=== PATIENT | female | born 1950 | race Caucasian/White ===

== ENCOUNTER 2018-03-19 14:10 | Observation (INO) | payer MEDICARE, SELFPAY ==
[2018-03-19] VITALS (10 sets, daily range): BP systolic 98–120; BP diastolic 44–69; PULSE 72–94; RESP 15–22; TEMP 36.2–36.6; O2SAT 88–96; BMI 27.8; BMI 27.7
--- NOTE | 2018-03-19 15:12 | EKG12_ITS ---
Test Reason : SOB Blood Pressure : / mmHG Vent. Rate : 077 BPM Atrial Rate : 077 BPM P-R Int : 144 ms QRS Dur : 080 ms QT Int : 420 ms P-R-T Axes : 057 -07 071 degrees QTc Int : 475 ms Normal sinus rhythm Cannot rule out Inferior infarct , age undetermined Abnormal ECG Confirmed by MELINA DEL REAL ([id number]), features editor JORDAN BRICE ([id number]) on 03/23/2018 8:30:39 AM Referred By: LAURY Confirmed By:MELINA DEL REAL
--- NOTE | 2018-03-19 15:13 | CT_ITS ---
STUDY: CTA CHEST REASON FOR EXAM: Female, 67 years old. Elevated d-dimer, mass RADIATION DOSAGE (If Supplied By Facility): CTDIvol = ( ) mGy, DLP = ( 564.24 ) mGycm TECHNIQUE: The examination was performed with the intravenous administration of 100 ml of Isovue 370 contrast material. Post-processing of the angiographic images was performed, with multiplanar reformation and 3D reconstruction. Individualized dose optimization techniques were used for this CT. COMPARISON: None. FINDINGS: Normal enhancement of the main pulmonary artery and right and left pulmonary arteries. Normal enhancement of the bilateral peripheral pulmonary arteries. There is no demonstrated pulmonary embolism. There are calcified plaques of the thoracic aorta. There is no demonstrated aortic dissection. Normal heart and pericardium. There is a subcarinal node measuring 3.2 x 1.8 cm. There is a right hilar mass/adenopathy encasing the distal right pulmonary artery , Measuring 5.0 x 2.6 x 3.5 cm. Normal visualized trachea and bronchi. The lungs are well expanded. There are mild diffuse emphysematous changes of the lungs. There are multiple right-sided pulmonary masses. There is a lobular right upper lobe mass abutting the superior major fissure measuring 2.8 x 1.6 cm. There is a right lower lobe paraspinous mass measuring 3.9 x 3.1 cm. There is a pleural-based right lower lobe mass measuring 4.1 x 2.6 cm. There is a lateral right middle lobe pleural-based nodule measuring 0.9 x 0.9 cm. There is plaque-like pleural mass of the posterolateral right hemithorax measuring 4.7 x 0.9 cm. This extends into the soft tissues of the chest wall. There is a medial right lower lobe mass measuring 1.8 x 1.6 cm. There is a lobular right lower lobe nodule measuring 1.0 x 1.0 cm. There are diffuse degenerative changes of the visualized thoracolumbar spine. No lytic or blastic osseous changes are seen. There is mild splenomegaly. There are several hepatic cysts measuring up to 1.[address]/CTA Chest W/WO Contrast IMPRESSION: Normal CTA chest examination, without a demonstrated pulmonary embolism or arterial dissection. There are numerous right lung masses/nodules as detailed above. There is a subcarinal enlarged mediastinal node and right hilar mass/adenopathy. Other findings as detailed above. Electronically Signed: Moises Jennings MD at 17:20 EDT , Service support ,
--- NOTE | 2018-03-19 15:17 | NURSING ---
NO OLD EKGS
[2018-03-19] MEDS: Ipratropium/Albuterol Sulfate 3 ML AMPUL.NEB INHALATION ×2 (15:30→22:58)
--- NOTE | 2018-03-19 15:41 | ED.DCSUM_ITS ---
- ER Visit Summary Date of Service: 03/19/18 Chief Complaint: Right chest pain History of Present Illness: The patient is a 67 F with right posterior chest pain for the past 1 month. She does report worsening shortness of breath with underlying history of COPD. She was seen by her PCPs office earlier this week. Her d-dimer was elevated. Chest x-ray revealed 2 right-sided masses. She was sent to the ER for CTA of her chest. Past history significant for coronary disease with cardiac stents, asthma, COPD, high cholesterol. She is a smoker. Physical Examination: Vital signs are unremarkable. Patient sitting upright in bed no acute distress. Head and neck examination is unremarkable. Heart is regular rate and rhythm. Lung sounds with expiratory wheezes. Abdomen is soft nontender. Peripheral pulses are noted throughout. Test Results: EKG is sinus at 77 with no sign of acute. CBC is normal. Chemistry studies significant only for a glucose of 143. Troponin is negative. CTA of the chest shows no evidence of PE or dissection. There are numerous ri ght lung masses/nodules. There is a subcarinal enlarged mediastinal node and right hilar mass/adenopathy. Emergency Department Course and Treatment: Patient was given aerosols. Her O2 sat did drop to 88% on room air and she did require nasal cannula. She has been given morphine and Zofran for pain. Test results were discussed with patient and at bedside. Patient is currently requiring oxygen supplementation and will be admitted because of this. I did advise her that she may go home this weekend with or without oxygen. She may have to return to have lung biopsy performed as an outpatient. She understands this. Treatment Plan: [] Disposition: Admit Impression: 1. COPD exacerbation with hypoxia 2. Multiple right lung masses This note was generated with [employer] dictation software. It may contain incorrect words, spelling, and punctuation that were not noted in review of the chart prior to signing ED Disposition - Plan for ED Patient: Chief Complaint: Shortness of Breath Referrals: Sher Palacio MD [Primary Care Provider] -
[2018-03-19] MEDS: 0.9% Normal Saline 1,000 ML 150 ML IV ×2 (15:44→21:03)
[2018-03-19] MEDS: Ondansetron 4 MG/2 ML Vial IV (15:44)
[2018-03-19] MEDS: Morphine 4 MG/ML Syringe IV ×2 (15:44→18:17)
[2018-03-19 15:47] LABS: Absolute Lymphocyte Count 1.08 X10^3/ul (0.83-4.51); Absolute Neutrophil Count 7.6 X10^3/uL (2.0-7.7); Basophil# 0.01 X10^3/uL; Basophil% 0.1 % (0-1); Eosinophil# 0.07 X10^3/uL; Eosinophils% 0.8 % (0-5); Hemoglobin 12.6 g/dl (12.0-15.0); Lymphocyte # 1.08 X10^3/ul (4.0); Lymphocyte % 12.1 % (19-41); Mean Corp Hgb Conc 33.2 g/gl (32-36); Mean Corpuscular Hgb 29.6 pg (27.0-32.0); Mean Corpuscular Volume 89.2 fL (81-99); Mean Platelet Vol. 9.6 fl (6.2-12.0); Monocyte# 0.11 X10^3/uL; Monocyte% 1.2 % (0-10); Neutrophil # 7.61 X10^3/uL (2.7-7.7); Neutrophil % 85.6 % (47-70); Platelet Count 181 K/mm3 (150-450); RBC Distribution Width CV 13.6 % (11.6-14.6); RBC Distribution Width SD 43.8 fl (35.1-43.9); Red Blood Count 4.26 M/mm3 (4.2-5.4); White Blood Count 8.9 K/mm3 (4.4-11.0)
[2018-03-19 16:01] LABS: Anion Gap 7 (5-15); BUN 14 mg/dL (7-18); BUN/Creat Ratio 17.1 RATIO (10-20); Calcium,Total 8.6 mg/dL (8.5-10.1); Chloride 106 mmol/L (98-107); Creatinine, Serum 0.82 mg/dL (0.55-1.02); EST Glomerular Filtration Rate 74 mL/min (>60); Est Glom Filt Rate - Afr Amer 90 mL/min (>60); Estimated Creatinine Clearance 63.18 ml/min; Glucose 143 mg/dL (74-106); Potassium 4.5 mmol/L (3.5-5.1); Sodium Level 140 mmol/L (136-145)
[2018-03-19 16:03] LABS: POSITIVE COUNT NO; POSITIVE DIFFERENTIAL NO; POSITIVE MORPHOLOGY NO
[2018-03-19] MEDS: Albuterol 2.5 MG/3 ML VIAL.NEB. INHALATION ×2 (17:35→17:36)
--- NOTE | 2018-03-19 18:16 | HP.PCM_ITS ---
Problem List (1) Upper back pain on right side Status: Acute (2) Shortness of breath Status: Acute History of Present Illness Date of Admission: 03/19/18 Chief Complaint: right upper back pain, shortness of breath The patient is a 67 year old F with past medical history of CAD status post stents, hypertension and COPD. She was admitted through the ED on 03/19/2018 with a complaint of right upper back pain for 1 month. Pain was sharp, rated 10 out of 10, progressively worsening, pleuritic in nature, aggravated by breathing in and out and relieved by lying down. She also had associated weight loss of about 17 pounds over the last 1-2 months. She also admitted to feeling lethargic and not having a good appetite but denied any fever or chills, and admitted to a cough which was occasionally productive of scanty sputum. She denied any chest pain, abdominal pain, diarrhea vomiting. She went to see PCP and a chest x-ray which was done showed 2 right lung masses and so she was referred to the ED for a CAT scan. On arrival in the ED she was found to be desaturating with saturation being ~ 86% on room air. CT of the chest done showed multiple right lung masses. She has been admitted for hypoxic re spiratory failure and right lung masses. [] Past Medical History Allergies ibuprofen Allergy (Verified 03/19/18 14:12) Hives orange Allergy (Verified 03/19/18 14:12) Hives Home Medications: Ambulatory Orders Medication Instructions Recorded Ergocalciferol [Vitamin D] 50,000 units PO FR 03/19/18 Gabapentin [Neurontin] 600 mg PO TID 03/19/18 Lisinopril [Zestril] 5 mg PO DAILY 03/19/18 Meloxicam 15 mg PO DAILY 03/19/18 Pantoprazole Sodium 40 mg PO DAILY 03/19/18 Prednisone 40 mg PO DAILY PRN PRN 03/19/18 Rosuvastatin Calcium 40 mg PO DAILY 03/19/18 Sertraline HCl [Zoloft] 150 mg PO DAILY 03/19/18 Tizanidine HCl 4 mg PO Q8H PRN PRN 03/19/18 Surgical History: - - appendectomy, cholecystectomy Psychiatric History: No pertinent psych hx 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 Denies: Chills, Fever, Night Sweats, Malaise HEENT: Denies: Head Aches, Sinus Congestion, Sinus Drainage Cardiovascular: Denies: Chest Pain, Chest Pressure, Palpitations Respiratory: Reports: Cough, Pleuritic Pain, Shortness of Breath, Shortness of breath at rest, Shortness of breath upon exertion, Sputum production. Denies: Hemoptysis Gastrointestinal: Denies: Abdominal Pain, Nausea, Vomiting Genitourinary: Denies: Dysuria Musculoskeletal: Denies: Joint Pain, Joint Tenderness Skin: Denies: Rash, Wounds Neurological: Denies: Numbness, Tingling, Focal weakness Psychiatric: Denies: Anxiety, Depression, Homicidal Ideations, Suicidal Ideations Hematologic/ Lymphatic: Denies: Easy Bruising, Easy Bleeding VTE Information - Inpt Only VTE Present on Admission: No VTE Pharm Prophylaxis ordered?: Yes Patient Problems: Active and Suspected Problems Upper back pain on right side (Acute) Shortness of breath (Acute) - Physical Exam General: Alert, Oriented x3, Cooperative, No apparent distress HEENT: Atraumatic, PERRLA, EOMI, Normocephalic Oral: Moist Mucosa Neck: Supple, No JVD, Negative Carotid Bruits Lungs: - - coarse crackles in left lower lung roche. Cardiovascular: Regular rate, Regular Rhythm, Normal S1, Normal S2, No murmurs Abdomen: Bowel Sounds Present, Soft, Non Tender, Non-Distended, No Hepato- splenomegaly Extremities: No clubbing, No cyanosis, No edema, Capillary Refill Less than 3 Seconds Skin: No rashes, No breakdown Musculoskeletal: No Tenderness to Palpation of Joints or Extremities Lymphatic: No Cervical, Supraclavicular, or Inguinal Adenopathy Neurological: Cranial nerves II-XII grossly intact, Neuro grossly intact, Motor Exam 5/5 strength throughout Psych/Mental Status: Normal Affect, Appropriate, Alert and oriented to time, place, person, mood and affect Vital Signs Temp Pulse Resp BP Pulse Ox 97.2 F L 84 15 114/61 88 03/19/18 14:12 03/19/18 17:36 03/19/18 17:36 03/19/18 17:20 03/19/18 17:20 Oxygen Flow Rate (L/min) 2 Oxygen Delivery Method Room Air Weight: 172 lb 9.951 oz Body Mass Index (BMI) 27.8 Laboratory Tests Past 24 Hrs 03/19/18 03/19/18 15:31 15:31 WBC 8.9 RBC 4.26 Hgb 12.6 Hct 38.0 MCV 89.2 MCH 29.6 MCHC 33.2 RDW 13.6 RDW Differential 43.8 Plt Count 181 MPV 9.6 Immature Gran % (Auto) 0.200 Neut % (Auto) 85.6 H Lymph % (Auto) 12.1 L [place] % (Auto) 1.2 Eos % (Auto) 0.8 Baso % (Auto) 0.1 Absolute Neuts (auto) 7.6 Absolute Lymphs (auto) 1.08 Total Counted Not Reportable Sodium 140 Potassium 4.5 Chloride 106 Carbon Dioxide 27.0 Anion Gap 7 BUN 14 Creatinine 0.82 Estim Creat Clear Calc 63.18 Est GFR (MDRD) Af Amer 90 Est GFR (MDRD) Non-Af 74 BUN/Creatinine Ratio 17.1 Glucose 143 H Calcium 8.6 Troponin I < 0.015 Diagnostic Data Chest CTA 03/19/18 15:13 IMPRESSION: Normal CTA chest examination, without a demonstrated pulmonary embolism or arterial dissection. There are numerous right lung masses/nodules as detailed above. There is a subcarinal enlarged mediastinal node and right hilar mass/adenopathy. Other findings as detailed above. Electronically Signed: Moises Jennings MD at 17:20 EDT , Service support , Assessment/Plan All Active Problems Upper back pain on right side (Acute) Shortness of breath (Acute) [age]-year-old female presenting with a one month history of right upper back pain and shortness of breath which is worsening. 1. Acute hypoxic respiratory insufficiency, likely due to COPD and newly diagnosed lung masses * Was saturating at 88% on room air and so required oxygen. * Has coarse crackles in left lower lung field. * CT chest showed multiple lung masses in the right lung with a subcarinal enlarged mediastinal node and right hilar mass adenopathy. In light of her extensive smoking history, this is lung cancer until proven otherwise * breathing treatments with duonebs * pulmonology consult * continue oxygen to maintain saturation >90% * 2. RIght lung masses, likely malignancy * as under 1. Having right upper back pain for about a month and chest x-ray done in the PCPs office showed [address] is done today as documented above. There was no PE though d-dimer was elevated. * pulmonology consult. * 3. COPD: breathing treatments with duonebs. Counselled to quit smoking 4. Hypertension: On lisinopril 5. CAD status post stents x5: Last stent was in 2003. On rosuvastatin. 6. DVT prophylaxis: Heparin CODE STATUS: Full code * Patient and partner counseled extensively about different types of CODE STATUS including differences between full code, DNR CCA DNR CCA. Patient elects to be full code for now. Her next of kin- children. * Total face to face time- 17 mins Code Visit OBSV E&M: 21655 Initial observation care L3 Procedures: 19121 Advncd Care Plan 30 Min
--- NOTE | 2018-03-19 18:17 | NURSING ---
MED SURG COPD EXAC, LUNG MASSES CECIL
[2018-03-19] MEDS: Heparin Injection (Vial) 5,000 UNIT/ML VIAL 5000 UNIT SC (21:05)
[2018-03-20] VITALS (8 sets, daily range): BP systolic 111–127; BP diastolic 47–60; PULSE 72–89; RESP 18; TEMP 36.7–36.9; O2SAT 84–98
[2018-03-20] MEDS: HYDROcodone Bitartrate/Apap 5/325 Tablet PO ×2 (01:08→09:27)
[2018-03-20] MEDS: 0.9% NaCl Peripheral Flush Adult/Peds IV (02:49)
[2018-03-20] MEDS: Morphine 2 MG/ML Syringe IV (02:50)
[2018-03-20] MEDS: 0.9% Normal Saline 1,000 ML 150 ML IV (02:58)
[2018-03-20 05:54] LABS: Absolute Lymphocyte Count 2.28 X10^3/ul (0.83-4.51); Absolute Neutrophil Count 5.6 X10^3/uL (2.0-7.7); Basophil# 0.01 X10^3/uL; Basophil% 0.1 % (0-1); Eosinophil# 0.21 X10^3/uL; Eosinophils% 2.4 % (0-5); Hematocrit 33.6 % (37-47); Hemoglobin 10.7 g/dl (12.0-15.0); Lymphocyte # 2.28 X10^3/ul (4.0); Lymphocyte % 26.5 % (19-41); Mean Corp Hgb Conc 31.8 g/gl (32-36); Mean Corpuscular Hgb 29.3 pg (27.0-32.0); Mean Corpuscular Volume 92.1 fL (81-99); Mean Platelet Vol. 9.6 fl (6.2-12.0); Monocyte# 0.54 X10^3/uL; Monocyte% 6.3 % (0-10); Neutrophil # 5.56 X10^3/uL (2.7-7.7); Neutrophil % 64.6 % (47-70); Platelet Count 140 K/mm3 (150-450); RBC Distribution Width CV 13.9 % (11.6-14.6); RBC Distribution Width SD 45.3 fl (35.1-43.9); Red Blood Count 3.65 M/mm3 (4.2-5.4); White Blood Count 8.6 K/mm3 (4.4-11.0)
[2018-03-20 06:03] LABS: Anion Gap 6 (5-15); BUN 14 mg/dL (7-18); BUN/Creat Ratio 24.1 RATIO (10-20); Calcium,Total 8.1 mg/dL (8.5-10.1); Chloride 111 mmol/L (98-107); Creatinine, Serum 0.58 mg/dL (0.55-1.02); EST Glomerular Filtration Rate 110 mL/min (>60); Est Glom Filt Rate - Afr Amer 133 mL/min (>60); Estimated Creatinine Clearance 51.81 ml/min; Glucose 78 mg/dL (74-106); Potassium 3.8 mmol/L (3.5-5.1); Sodium Level 144 mmol/L (136-145)
[2018-03-20 06:13] LABS: POSITIVE COUNT NO; POSITIVE DIFFERENTIAL NO
[2018-03-20 06:14] LABS: POSITIVE MORPHOLOGY NO
[2018-03-20] MEDS: Heparin Injection (Vial) 5,000 UNIT/ML VIAL 5000 UNIT SC (06:54)
[2018-03-20] MEDS: Ipratropium/Albuterol Sulfate 3 ML AMPUL.NEB INHALATION ×2 (06:59→12:59)
--- NOTE | 2018-03-20 07:30 | PCM.CONS.GEN ---
Reason for Consult Date of Consultation: 03/20/18 Reason for Consultation: Abnormal chest imaging History of Present Illness: The patient is a 67-year-old female, with a history as outlined below, who presented to the emergency department on March 19 with complaints of shortness of breath and right-sided chest pain. The patient had reportedly been evaluated in the office of her primary care provider. A d-dimer was obtained, which was elevated and a plain film chest x-ray revealed abnormalities. Therefore, the patient was referred to the emergency department for further evaluation. The patient claims to be followed by Dr. Willis, pulmonary medicine, through the [facility] as an outpatient basis. She also claims to have had pulmonary function testing completed and states that she utilizes 3 separate inhalers on an outpatient basis, but cannot recall their names. She did inform me that it was her intention to continue to follow-up with her current pulmonary provider. She does report that her weight has been stable, but does admit to poor appetite. Prior to her hospitalization, she was not utilizing supplemental oxygen at her baseline. She is currently smoking 0.5 packs/day, but did admit to being a heavier smoker previously. She states that she has been smoking since age of 15. On presentation to the emergency department, the patient was noted to be afebrile, hemodynamically stable and maintaining appropriate oxygen saturations on room air. Laboratory evaluation revealed no evidence of a leukocytosis. Chemistry profile was unremarkable. Troponin was negative. A CTA chest was obtained which revealed no evidence for pulmonary embolism. There was, however, evidence of mediastinal and hilar lymphadenopathy. There did appear to be a dominant right hilar mass/adenopathy. Multiple other focal masses were identified bilaterally. Emphysematous changes were noted as well. Past Medical History Allergies ibuprofen Allergy (Verified 03/19/18 14:12) Hives orange Allergy (Verified 03/19/18 14:12) Hives Home Medications: Ambulatory Orders Medication Instructions Recorded Aspirin [Aspirin, Baby] 81 mg PO DAILY@0800 03/19/18 Ergocalciferol [Vitamin D] 50,000 units PO FR 03/19/18 Gabapentin [Neurontin] 600 mg PO TID 03/19/18 Lisinopril [Zestril] 5 mg PO DAILY 03/19/18 Meloxicam 15 mg PO DAILY 03/19/18 Pantoprazole Sodium 40 mg PO DAILY 03/19/18 Prednisone 40 mg PO DAILY PRN PRN 03/19/18 Rosuvastatin Calcium 40 mg PO DAILY 03/19/18 Sertraline HCl [Zoloft] 150 mg PO DAILY 03/19/18 Tizanidine HCl 4 mg PO Q8H PRN PRN 03/19/18 Albuterol Inhaler [Ventolin Hfa] 1 - 2 puff INHALATION Q4H PRN PRN 03/20/18 #1 inhaler Prednisone 40 mg PO DAILY #10 tablet 03/20/18 Surgical History: - - appendectomy, cholecystectomy Psychiatric History: No 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 Denies: Head Aches, Sinus Congestion, Sinus Drainage Cardiovascular: Denies: Chest Pain, Palpitations Respiratory: Reports: Shortness of Breath Gastrointestinal: Denies: Abdominal Pain, Nausea, Vomiting Genitourinary: Denies: Dysuria Musculoskeletal: Denies: Joint Pain, Joint Tenderness Skin: Denies: Rash, Wounds Neurological: Denies: Numbness, Tingling, Focal weakness Psychiatric: Denies: Anxiety, Depression, Homicidal Ideations, Suicidal Ideations Hematologic/ Lymphatic: Denies: Easy Bruising, Easy Bleeding Objective: The patient's most recent lab work, culture data and imaging studies have all been personally reviewed. - Physical Exam General: Alert, Cooperative, No apparent distress HEENT: Atraumatic, PERRLA, Normocephalic Oral: No Gingival or Mucosal Lesions/ Ulcerations Neck: Supple, No Nodes, Trachea Midline Lungs: No rhonchi, No wheeze, Diminished, Rales Cardiovascular: Regular rate, Regular Rhythm, Normal S1, Normal S2, No murmurs Abdomen: Bowel Sounds Present, Soft, Non Tender, Obese Extremities: No clubbing, No cyanosis, No edema Skin: No breakdown Musculoskeletal: No Tenderness to Palpation of Joints or Extremities, No Muscle Wasting Lymphatic: No Cervical, Supraclavicular, or Inguinal Adenopathy Neurological: Cranial nerves II-XII grossly intact, Neuro grossly intact Psych/Mental Status: Normal Affect, Appropriate Vital Signs Temp Pulse Resp BP Pulse Ox 98.3 F 72 18 111/47 L 96 03/20/18 02:45 03/20/18 06:59 03/20/18 02:45 03/20/18 02:45 03/20/18 02:45 Oxygen Flow Rate (L/min) 2 Oxygen Delivery Method Nasal Cannula Weight: 171 lb 15.369 oz Body Mass Index (BMI) 27.7 Intake and Output for Last 24 Hours 03/18/18 03/19/18 03/20/18 23:59 23:59 23:59 Intake Total 442 / 442 1306 / 1306 Balance 442 / 442 1306 / 1306 Laboratory Tests Past 24 Hrs 03/19/18 03/19/18 03/20/18 15:31 15:31 05:39 WBC 8.9 RBC 4.26 Hgb 12.6 Hct 38.0 MCV 89.2 MCH 29.6 MCHC 33.2 RDW 13.6 RDW Differential 43.8 Plt Count 181 MPV 9.6 Immature Gran % (Auto) 0.200 Neut % (Auto) 85.6 H Lymph % (Auto) 12.1 L [place] % (Auto) 1.2 Eos % (Auto) 0.8 Baso % (Auto) 0.1 Absolute Neuts (auto) 7.6 Absolute Lymphs (auto) 1.08 Total Counted Not Reportable Sodium 140 144 Potassium 4.5 3.8 Chloride 106 111 H Carbon Dioxide 27.0 27.0 Anion Gap 7 6 BUN 14 14 Creatinine 0.82 0.58 Estim Creat Clear Calc 63.18 51.81 Est GFR (MDRD) Af Amer 90 133 Est GFR (MDRD) Non-Af 74 110 BUN/Creatinine Ratio 17.1 24.1 H Glucose 143 H 78 Calcium 8.6 8.1 L Troponin I < 0.015 03/20/18 05:39 WBC 8.6 RBC 3.65 L Hgb 10.7 L Hct 33.6 L MCV 92.1 MCH 29.3 MCHC 31.8 L RDW 13.9 RDW Differential 45.3 H Plt Count 140 L MPV 9.6 Immature Gran % (Auto) 0.100 Neut % (Auto) 64.6 Lymph % (Auto) 26.5 [place] % (Auto) 6.3 Eos % (Auto) 2.4 Baso % (Auto) 0.1 Absolute Neuts (auto) 5.6 Absolute Lymphs (auto) 2.28 Total Counted Not Reportable Sodium Potassium Chloride Carbon Dioxide Anion Gap BUN Creatinine Estim Creat Clear Calc Est GFR (MDRD) Af Amer Est GFR (MDRD) Non-Af BUN/Creatinine Ratio Glucose Calcium Troponin I Clinical Impression(s) from Imaging Studies Chest CTA 03/19/18 15:13 IMPRESSION: Normal CTA chest examination, without a demonstrated pulmonary embolism or arterial dissection. There are numerous right lung masses/nodules as detailed above. There is a subcarinal enlarged mediastinal node and right hilar mass/adenopathy. Other findings as detailed above. Electronically Signed: Moises Jennings MD at 17:20 EDT , Service support , Assessment/Plan All Active Problems Upper back pain on right side (Acute) Shortness of breath (Acute) RECOMMENDATIONS: 1. Ideally, the patient needs further workup of her underlying abnormal chest imaging. However, she does report that she has an outpatient supervisor cold rolling whom she plans to follow-up with. 2. Would plan to obtain a walking oximetry study prior to consideration for discharge from the hospital. 3. Recommend that she be seen by her outpatient supervisor cold rolling within 2 weeks of her discharge for further workup. 4. If the patient wishes, we would be more than happy to see her as an outpatient. IMPRESSIONS: 1. Abnormal chest imaging Given the patient's chest imaging findings in conjunction with her extended smoking history, the radiographic findings are certainly concerning for underlying malignancy. This, of course, would require additional workup including potential bronchoscopy and/or percutaneous lung biopsy. This can all be accomplished on an outpatient basis. The patient indicated to me that she wished to follow-up with her outpatient supervisor cold rolling. I would recommend that a follow-up appointment be scheduled within 2 weeks of her discharge from the hospital. If they are unable to facilitate a follow-up office visit, the patient will be referred to our pulmonary practice here for further workup. 2. Self-reported COPD of unknown severity/respiratory insufficiency The patient appears to have a new supplemental oxygen requirement. The chronicity and severity of her COPD is unknown to me. However, we will plan to perform a walking oximetry study and qualify the patient for home supplemental O2. Depending on her wishes, she can either follow-up with her outpatient supervisor cold rolling or come see us. 3. Tobacco dependency Smoking cessation is strongly advised. 4. Obesity/neuropathy/hypertension/GERD/hyperlipidemia Complicates care, management, recovery and prognosis. Likely okay to continue home medications. This note was generated with [employer] dictation software. It may contain incorrect words, spelling, and punctuation that were not noted in checking the note before signing. Code Visit Inpatient E&M: 70079 Init Hosp L3
--- NOTE | 2018-03-20 07:35 | CON.PCM_ITS ---
Reason for Consult Date of Consultation: 03/20/18 Reason for Consultation: Abnormal chest imaging History of Present Illness: The patient is a 67-year-old female, with a history as outlined below, who presented to the emergency department on March 19 with complaints of shortness of breath and right-sided chest pain. The patient had reportedly been evaluated in the office of her primary care provider. A d-dimer was obtained, which was elevated and a plain film chest x-ray revealed abnormalities. Therefore, the patient was referred to the emergency department for further evaluation. The patient claims to be followed by Dr. Willis, pulmonary medicine, through the [facility] as an outpatient basis. She also claims to have had pulmonary function testing completed and states that she utilizes 3 separate inhalers on an outpatient basis, but cannot recall their names. She did inform me that it was her intention to continue to follow-up with her current pulmonary provider. She does report that her weight has been stable, but does admit to poor appetite. Prior to her hospitalization, she was not utilizing supplemental oxygen at her baseline. She is currently smoking 0.5 packs/day, but did admit to being a heavier smoker previously. She states that she has been smoking since age of 15. On presentation to the emergency department, the patient was noted to be afebrile, hemodynamically stable and maintaining appropriate oxygen saturations on room air. Laboratory evaluation revealed no evidence of a leukocytosis. Chemistry profile was unremarkable. Troponin was negative. A CTA chest was obtained which revealed no evidence for pulmonary embolism. There was, however, evidence of mediastinal and hilar lymphadenopathy. There did appear to be a dominant right hilar mass/adenopathy. Multiple other focal masses were identified bilaterally. Emphysematous changes were noted as well. Past Medical History Allergies ibuprofen Allergy (Verified 03/19/18 14:12) Hives orange Allergy (Verified 03/19/18 14:12) Hives Home Medications: Ambulatory Orders Medication Instructions Recorded Aspirin [Aspirin, Baby] 81 mg PO DAILY@0800 03/19/18 Ergocalciferol [Vitamin D] 50,000 units PO FR 03/19/18 Gabapentin [Neurontin] 600 mg PO TID 03/19/18 Lisinopril [Zestril] 5 mg PO DAILY 03/19/18 Meloxicam 15 mg PO DAILY 03/19/18 Pantoprazole Sodium 40 mg PO DAILY 03/19/18 Prednisone 40 mg PO DAILY PRN PRN 03/19/18 Rosuvastatin Calcium 40 mg PO DAILY 03/19/18 Sertraline HCl [Zoloft] 150 mg PO DAILY 03/19/18 Tizanidine HCl 4 mg PO Q8H PRN PRN 03/19/18 Albuterol Inhaler [Ventolin Hfa] 1 - 2 puff INHALATION Q4H PRN PRN 03/20/18 #1 inhaler Prednisone 40 mg PO DAILY #10 tablet 03/20/18 Surgical History: - - appendectomy, cholecystectomy Psychiatric History: No pertinent psych hx ACCOUNTS OFFICER History: No pertinent ACCOUNTS OFFICER history Lives: Spouse/ Significant Other Smoking Status: Current every day smoker Tobacco Use: Cigarettes Alcohol: None Drugs: None - *Family History Sibling History Items: Cancer - lung cancer in 2 of her sisters from smoking; brain cancer in brother, COPD Review of Systems Constitutional: Denies: Chills, Fever Eyes: Denies: Blurred vision, Double vision HEENT: Reports: Difficulty Hearing. Denies: Head Aches, Sinus Congestion, Sinus Drainage Cardiovascular: Denies: Chest Pain, Palpitations Respiratory: Reports: Shortness of Breath Gastrointestinal: Denies: Abdominal Pain, Nausea, Vomiting Genitourinary: Denies: Dysuria Musculoskeletal: Denies: Joint Pain, Joint Tenderness Skin: Denies: Rash, Wounds Neurological: Denies: Numbness, Tingling, Focal weakness Psychiatric: Denies: Anxiety, Depression, Homicidal Ideations, Suicidal Ideations Hematologic/ Lymphatic: Denies: Easy Bruising, Easy Bleeding Objective: The patient's most recent lab work, culture data and imaging studies have all been personally reviewed. - Physical Exam General: Alert, Cooperative, No apparent distress HEENT: Atraumatic, PERRLA, Normocephalic Oral: No Gingival or Mucosal Lesions/ Ulcerations Neck: Supple, No Nodes, Trachea Midline Lungs: No rhonchi, No wheeze, Diminished, Rales Cardiovascular: Regular rate, Regular Rhythm, Normal S1, Normal S2, No murmurs Abdomen: Bowel Sounds Present, Soft, Non Tender, Obese Extremities: No clubbing, No cyanosis, No edema Skin: No breakdown Musculoskeletal: No Tenderness to Palpation of Joints or Extremities, No Muscle Wasting Lymphatic: No Cervical, Supraclavicular, or Inguinal Adenopathy Neurological: Cranial nerves II-XII grossly intact, Neuro grossly intact Psych/Mental Status: Normal Affect, Appropriate Vital Signs Temp Pulse Resp BP Pulse Ox 98.3 F 72 18 111/47 L 96 03/20/18 02:45 03/20/18 06:59 03/20/18 02:45 03/20/18 02:45 03/20/18 02:45 Oxygen Flow Rate (L/min) 2 Oxygen Delivery Method Nasal Cannula Weight: 171 lb 15.369 oz Body Mass Index (BMI) 27.7 Intake and Output for Last 24 Hours 03/18/18 03/19/18 03/20/18 23:59 23:59 23:59 Intake Total 442 / 442 1306 / 1306 Balance 442 / 442 1306 / 1306 Laboratory Tests Past 24 Hrs 03/19/18 03/19/18 03/20/18 15:31 15:31 05:39 WBC 8.9 RBC 4.26 Hgb 12.6 Hct 38.0 MCV 89.2 MCH 29.6 MCHC 33.2 RDW 13.6 RDW Differential 43.8 Plt Count 181 MPV 9.6 Immature Gran % (Auto) 0.200 Neut % (Auto) 85.6 H Lymph % (Auto) 12.1 L [place] % (Auto) 1.2 Eos % (Auto) 0.8 Baso % (Auto) 0.1 Absolute Neuts (auto) 7.6 Absolute Lymphs (auto) 1.08 Total Counted Not Reportable Sodium 140 144 Potassium 4.5 3.8 Chloride 106 111 H Carbon Dioxide 27.0 27.0 Anion Gap 7 6 BUN 14 14 Creatinine 0.82 0.58 Estim Creat Clear Calc 63.18 51.81 Est GFR (MDRD) Af Amer 90 133 Est GFR (MDRD) Non-Af 74 110 BUN/Creatinine Ratio 17.1 24.1 H Glucose 143 H 78 Calcium 8.6 8.1 L Troponin I < 0.015 03/20/18 05:39 WBC 8.6 RBC 3.65 L Hgb 10.7 L Hct 33.6 L MCV 92.1 MCH 29.3 MCHC 31.8 L RDW 13.9 RDW Differential 45.3 H Plt Count 140 L MPV 9.6 Immature Gran % (Auto) 0.100 Neut % (Auto) 64.6 Lymph % (Auto) 26.5 [place] % (Auto) 6.3 Eos % (Auto) 2.4 Baso % (Auto) 0.1 Absolute Neuts (auto) 5.6 Absolute Lymphs (auto) 2.28 Total Counted Not Reportable Sodium Potassium Chloride Carbon Dioxide Anion Gap BUN Creatinine Estim Creat Clear Calc Est GFR (MDRD) Af Amer Est GFR (MDRD) Non-Af BUN/Creatinine Ratio Glucose Calcium Troponin I Clinical Impression(s) from Imaging Studies Chest CTA 03/19/18 15:13 IMPRESSION: Normal CTA chest examination, without a demonstrated pulmonary embolism or arterial dissection. There are numerous right lung masses/nodules as detailed above. There is a subcarinal enlarged mediastinal node and right hilar mass/adenopathy. Other findings as detailed above. Electronically Signed: Moises Jennings MD at 17:20 EDT , Service support , Assessment/Plan All Active Problems Upper back pain on right side (Acute) Shortness of breath (Acute) RECOMMENDATIONS: 1. Ideally, the patient needs further workup of her underlying abnormal chest imaging. However, she does report that she has an outpatient sheet cutting operator whom she plans to follow-up with. 2. Would plan to obtain a walking oximetry study prior to consideration for discharge from the hospital. 3. Recommend that she be seen by her outpatient sheet cutting operator within 2 weeks of her discharge for further workup. 4. If the patient wishes, we would be more than happy to see her as an outpatient. IMPRESSIONS: 1. Abnormal chest imaging Given the patient's chest imaging findings in conjunction with her extended smoking history, the radiographic findings are certainly concerning for underlying malignancy. This, of course, would require additional workup including potential bronchoscopy and/or percutaneous lung biopsy. This can all be accomplished on an outpatient basis. The patient indicated to me that she wished to follow-up with her outpatient sheet cutting operator. I would recommend that a follow-up appointment be scheduled within 2 weeks of her discharge from the hospital. If they are unable to facilitate a follow-up office visit, the patient will be referred to our pulmonary practice here for further workup. 2. Self-reported COPD of unknown severity/respiratory insufficiency The patient appears to have a new supplemental oxygen requirement. The chronicity and severity of her COPD is unknown to me. However, we will plan to perform a walking oximetry study and qualify the patient for home supplemental O2. Depending on her wishes, she can either follow-up with her outpatient sheet cutting operator or come see us. 3. Tobacco dependency Smoking cessation is strongly advised. 4. Obesity/neuropathy/hypertension/GERD/hyperlipidemia Complicates care, management, recovery and prognosis. Likely okay to continue home medications. This note was generated with [employer] dictation software. It may contain incorrect words, spelling, and punctuation that were not noted in checking the note before signing. Code Visit Inpatient E&M: 80304 Init Hosp L3
--- NOTE | 2018-03-20 09:45 | CASEMGMT ---
Addendum entered by Nura Tran 03/20/18 10:33: Intro role of CM to patient in room. Pt states she is agreeable to Home oxygen through [facility], has no concerns re: dc. Family will provide transporation to physicians if needed. Pt has walker, cane, does not use @ this time. Liberty WOODARD Original Note: RN CM Note: Referral received for Home Oxygen on dc. Per insurance review on [facility] website, [facility] is [facility]. Clinical information packet made, awaiting script to be completed by physician and Oxygen documentation including Liter flow needed on ambulation to keep Sat>90%. [facility] nurse updated. Liberty GRACIAM
--- NOTE | 2018-03-20 10:46 | DCINST_ITS ---
- Discharge Diagnoses Current Active Problems: Current Active and Chronic Problems Upper back pain on right side (Acute) Shortness of breath (Acute) You will use the following diet at home:: Cardiac Discharge Activity: Return to Normal Activity Call your doctor if you observe: Shortness of breath, Dizziness, Fainting spells, Chest pain Allergies/Adverse Reactions: Allergies ibuprofen Allergy (Verified 03/19/18 14:12) Hives orange Allergy (Verified 03/19/18 14:12) Hives Medications to take at Discharge Aspirin [Aspirin, Baby] 81 mg PO DAILY@0800 03/19/18 Ergocalciferol [Vitamin D] 50,000 units PO FR 03/19/18 Gabapentin [Neurontin] 600 mg PO TID 03/19/18 Lisinopril [Zestril] 5 mg PO DAILY 03/19/18 Meloxicam 15 mg PO DAILY 03/19/18 Pantoprazole Sodium 40 mg PO DAILY 03/19/18 Prednisone 40 mg PO DAILY PRN PRN 03/19/18 Rosuvastatin Calcium 40 mg PO DAILY 03/19/18 Sertraline HCl [Zoloft] 150 mg PO DAILY 03/19/18 Tizanidine HCl 4 mg PO Q8H PRN PRN 03/19/18 Albuterol Inhaler [Ventolin Hfa] 1 - 2 puff INHALATION Q4H PRN PRN #1 inhaler 03/20/18 Prednisone 40 mg PO DAILY #10 tablet 03/20/18 The following prescriptions were given: Albuterol Inhaler [Ventolin Hfa] 1 - 2 puff INHALATION Q4H PRN PRN #1 inhaler PRN Reason: Shortness Of Breath Prednisone 40 mg PO DAILY #10 tablet Primary Care Physician: Sher Palacio MD [Primary Care Provider] - Please follow up with your Primary Care Physician in: 1 Week Test Results: Test results from this visit will be discussed in further detail at your follow- up appointment, if applicable. Please Follow Up With: Jose Willis MD When: Within 1 Week Proposed Discharge Date: 03/20/18
--- NOTE | 2018-03-20 10:51 | PCM.DC.SUM ---
<Elvira Rogers - Last Filed: 03/20/18 11:03> Discharge Date and Diagnosis Date of Admission: 03/19/18 Date of Discharge: 03/20/18 - Primary Discharge Diagnosis Active and Suspected Problems 1. Acute hypoxic respiratory insufficiency secondary to Chronic COPD with concern for new diagnosis of lung masses 2. Right lung masses, suspicious for malignancy 3. Chronic COPD 4. Hypertension 5. CAD status post stents x5 6. Depression 7. Tobacco dependence Hospital Course and Treatment Imaging Results: Diagnostic Data Chest CTA 03/19/18 15:13 IMPRESSION: Normal CTA chest examination, without a demonstrated pulmonary embolism or arterial dissection. There are numerous right lung masses/nodules as detailed above. There is a subcarinal enlarged mediastinal node and right hilar mass/adenopathy. Other findings as detailed above. Electronically Signed: Moises Jennings MD at 17:20 EDT , Service support , - Pulmonary Medicine Operations: None Procedures: None Summary of Care Provided: The patient is a 67 year old F admitted 03/19/2018 due to right upper back pain and shortness of breath. She has a past medical history of CAD status post stents, hypertension, COPD, depression, tobacco dependence. Patient reports a 17 pound weight loss over the past 1-2 months. Patient was referred by primary care physician for chest x-ray which was abnormal and reported to show [address] of the chest shows multiple right lung masses. Patient reports she has been short of breath for months. Noted to have acute hypoxic respiratory insufficiency. Patient will require supplemental oxygen at discharge. She is ambulatory in the home. Continue supplement oxygen to maintain O2 at or above 90%. Patient's oxygen 84% on room air with ambulation. Pulmonary consulted. Patient currently follows with Dr. Willis, [facility] pulmonary medicine for COPD. Patient will follow-up with primary snipper within 2 weeks of discharge for further evaluation regarding lung masses including potential bronchoscopy/lung biopsy. Strongly recommended patient quit smoking. Patient complains of chronic back pain and requesting narcotic medication at discharge. She is on muscle relaxer, meloxicam, as needed prednisone, gabapentin at home for chronic back pain. Encourage patient to discuss this further with primary care physician. Recommend follow-up with primary care physician in 1 week. General: Alert, Cooperative, No apparent distress HEENT: Atraumatic, PERRLA, Normocephalic Oral: No Gingival or Mucosal Lesions/ Ulcerations Neck: Supple, No Nodes, Trachea Midline Lungs: No rhonchi, No wheeze, Diminished, Rales Cardiovascular: Regular rate, Regular Rhythm, Normal S1, Normal S2, No murmurs Abdomen: Bowel Sounds Present, Soft, Non Tender, Obese Extremities: No clubbing, No cyanosis, No edema Skin: No breakdown Musculoskeletal: No Tenderness to Palpation of Joints or Extremities, No Muscle Wasting Lymphatic: No Cervical, Supraclavicular, or Inguinal Adenopathy Neurological: Cranial nerves II-XII grossly intact, Neuro grossly intact Psych/Mental Status: Normal Affect, Appropriate Patient seen exam prior to discharge. Physical assessment as noted above. Patient stable for discharge home with the follow-up her conditions as noted above. This patient was seen by EL Lunsford under the supervision of Dr. Matamoros. - Physical Exam Vital Signs Temp Pulse Resp BP Pulse Ox 98.4 F 89 18 121/60 H 93 03/20/18 09:10 03/20/18 09:10 03/20/18 09:10 03/20/18 09:10 03/20/18 09:30 Oxygen Flow Rate (L/min) [ 0 AMBULATING on Room Air] Oxygen Flow Rate (L/min) [At 0 REST on Room Air] Oxygen Flow Rate (L/min) 2 Oxygen Delivery Method Nasal Cannula Weight: 171 lb 15.369 oz Body Mass Index (BMI) 27.7 Intake and Output for Last 24 Hours 03/18/18 03/19/18 03/20/18 23:59 23:59 23:59 Intake Total 442 / 442 1306 / 1306 Balance 442 / 442 1306 / 1306 Laboratory Tests Past 24 Hrs 03/19/18 03/19/18 03/20/18 15:31 15:31 05:39 WBC 8.9 RBC 4.26 Hgb 12.6 Hct 38.0 MCV 89.2 MCH 29.6 MCHC 33.2 RDW 13.6 RDW Differential 43.8 Plt Count 181 MPV 9.6 Immature Gran % (Auto) 0.200 Neut % (Auto) 85.6 H Lymph % (Auto) 12.1 L [place] % (Auto) 1.2 Eos % (Auto) 0.8 Baso % (Auto) 0.1 Absolute Neuts (auto) 7.6 Absolute Lymphs (auto) 1.08 Total Counted Not Reportable Sodium 140 144 Potassium 4.5 3.8 Chloride 106 111 H Carbon Dioxide 27.0 27.0 Anion Gap 7 6 BUN 14 14 Creatinine 0.82 0.58 Estim Creat Clear Calc 63.18 51.81 Est GFR (MDRD) Af Amer 90 133 Est GFR (MDRD) Non-Af 74 110 BUN/Creatinine Ratio 17.1 24.1 H Glucose 143 H 78 Calcium 8.6 8.1 L Troponin I < 0.015 03/20/18 05:39 WBC 8.6 RBC 3.65 L Hgb 10.7 L Hct 33.6 L MCV 92.1 MCH 29.3 MCHC 31.8 L RDW 13.9 RDW Differential 45.3 H Plt Count 140 L MPV 9.6 Immature Gran % (Auto) 0.100 Neut % (Auto) 64.6 Lymph % (Auto) 26.5 [place] % (Auto) 6.3 Eos % (Auto) 2.4 Baso % (Auto) 0.1 Absolute Neuts (auto) 5.6 Absolute Lymphs (auto) 2.28 Total Counted Not Reportable Sodium Potassium Chloride Carbon Dioxide Anion Gap BUN Creatinine Estim Creat Clear Calc Est GFR (MDRD) Af Amer Est GFR (MDRD) Non-Af BUN/Creatinine Ratio Glucose Calcium Troponin I Discharge Diet: Low fat/ Low Cholesterol Discharge Activity: Return to Normal Activity Call your doctor if you observe: Shortness of breath, Dizziness, Fainting spells, Chest pain Home Medications: Medications to take at Discharge Aspirin [Aspirin, Baby] 81 mg PO DAILY@0800 03/19/18 Ergocalciferol [Vitamin D] 50,000 units PO FR 03/19/18 Gabapentin [Neurontin] 600 mg PO TID 03/19/18 Lisinopril [Zestril] 5 mg PO DAILY 03/19/18 Meloxicam 15 mg PO DAILY 03/19/18 Pantoprazole Sodium 40 mg PO DAILY 03/19/18 Prednisone 40 mg PO DAILY PRN PRN 03/19/18 Rosuvastatin Calcium 40 mg PO DAILY 03/19/18 Sertraline HCl [Zoloft] 150 mg PO DAILY 03/19/18 Tizanidine HCl 4 mg PO Q8H PRN PRN 03/19/18 Albuterol Inhaler [Ventolin Hfa] 1 - 2 puff INHALATION Q4H PRN PRN #1 inhaler 03/20/18 Prednisone 40 mg PO DAILY #10 tablet 03/20/18 Following Prescrptions Were Given to Patient: Albuterol Inhaler [Ventolin Hfa] 1 - 2 puff INHALATION Q4H PRN PRN #1 inhaler PRN Reason: Shortness Of Breath Prednisone 40 mg PO DAILY #10 tablet Primary Care Physician: Sher Palacio MD [Primary Care Provider] - Please follow up with your Primary Care Physician in: 1 Week Please Follow Up With: Jose Willis MD When: Within 1 Week Disposition: Home Minutes spent on discharge:: 35 Patient Condition:: Stable Medical Necessity - Tobacco Use Smoking Status: Current every day smoker Tobacco Use: Cigarettes Meaningful Use Info Meaningful Use Diagnoses (Choose all that apply): None applicable <Miky Matamoros F - Last Filed: 03/20/18 11:08> Hospital Course and Treatment Summary of Care Provided: The patient is a 67 year old F [] - Physical Exam Vital Signs Temp Pulse Resp BP Pulse Ox 98.4 F 89 18 121/60 H 93 03/20/18 09:10 03/20/18 09:10 03/20/18 09:10 03/20/18 09:10 03/20/18 09:30 Oxygen Flow Rate (L/min) [ 0 AMBULATING on Room Air] Oxygen Flow Rate (L/min) [At 0 REST on Room Air] Oxygen Flow Rate (L/min) 2 Oxygen Delivery Method Nasal Cannula Weight: 171 lb 15.369 oz Body Mass Index (BMI) 27.7 Intake and Output for Last 24 Hours 03/18/18 03/19/18 03/20/18 23:59 23:59 23:59 Intake Total 442 / 442 1306 / 1306 Balance 442 / 442 1306 / 1306 Laboratory Tests Past 24 Hrs 03/19/18 03/19/18 03/20/18 15:31 15:31 05:39 WBC 8.9 RBC 4.26 Hgb 12.6 Hct 38.0 MCV 89.2 MCH 29.6 MCHC 33.2 RDW 13.6 RDW Differential 43.8 Plt Count 181 MPV 9.6 Immature Gran % (Auto) 0.200 Neut % (Auto) 85.6 H Lymph % (Auto) 12.1 L [place] % (Auto) 1.2 Eos % (Auto) 0.8 Baso % (Auto) 0.1 Absolute Neuts (auto) 7.6 Absolute Lymphs (auto) 1.08 Total Counted Not Reportable Sodium 140 144 Potassium 4.5 3.8 Chloride 106 111 H Carbon Dioxide 27.0 27.0 Anion Gap 7 6 BUN 14 14 Creatinine 0.82 0.58 Estim Creat Clear Calc 63.18 51.81 Est GFR (MDRD) Af Amer 90 133 Est GFR (MDRD) Non-Af 74 110 BUN/Creatinine Ratio 17.1 24.1 H Glucose 143 H 78 Calcium 8.6 8.1 L Troponin I < 0.015 03/20/18 05:39 WBC 8.6 RBC 3.65 L Hgb 10.7 L Hct 33.6 L MCV 92.1 MCH 29.3 MCHC 31.8 L RDW 13.9 RDW Differential 45.3 H Plt Count 140 L MPV 9.6 Immature Gran % (Auto) 0.100 Neut % (Auto) 64.6 Lymph % (Auto) 26.5 [place] % (Auto) 6.3 Eos % (Auto) 2.4 Baso % (Auto) 0.1 Absolute Neuts (auto) 5.6 Absolute Lymphs (auto) 2.28 Total Counted Not Reportable Sodium Potassium Chloride Carbon Dioxide Anion Gap BUN Creatinine Estim Creat Clear Calc Est GFR (MDRD) Af Amer Est GFR (MDRD) Non-Af BUN/Creatinine Ratio Glucose Calcium Troponin I Code Visit Addendum: Dr. Matamoros I personally examined the patient and reviewed the chart. I agree with the above. 67-year-old female with past medical history of CAD status post stents, hypertension, and COPD presented to her PCP with back pain where a d-dimer was performed and was elevated and the next chest x-ray was obtained which showed nodules in her right lung. Her PCP sent her to the ER for further evaluation and she was found to be hypoxic on room air to 86%. She had a CT scan of her chest in the ER which demonstrated multiple right pulmonary lesions. She had an ambulatory pulse ox on the day of discharge demonstrating her necessity for home O2. She was seen by our in-house snipper who is more than happy to see her as an outpatient however he recommended that since she has a [facility] snipper that she follow-up with him if possible otherwise he can see her as an outpatient and perform the JULISA and lung biopsy she would need to determine what the diagnosis is. She is not currently on anything for her COPD, and she was heard to have some wheezing today so she was discharged on steroids to help both with her respiratory status as well as her back pain and she was provided with an albuterol inhaler to use as needed. OBSV E&M: 19463 Observation care discharge
--- NOTE | 2018-03-20 10:56 | DS.PCM_ITS ---
<Elvira Rogers - Last Filed: 03/20/18 11:03> Discharge Date and Diagnosis Date of Admission: 03/19/18 Date of Discharge: 03/20/18 - Primary Discharge Diagnosis Active and Suspected Problems 1. Acute hypoxic respiratory insufficiency secondary to Chronic COPD with concern for new diagnosis of lung masses 2. Right lung masses, suspicious for malignancy 3. Chronic COPD 4. Hypertension 5. CAD status post stents x5 6. Depression 7. Tobacco dependence Hospital Course and Treatment Imaging Results: Diagnostic Data Chest CTA 03/19/18 15:13 IMPRESSION: Normal CTA chest examination, without a demonstrated pulmonary embolism or arterial dissection. There are numerous right lung masses/nodules as detailed above. There is a subcarinal enlarged mediastinal node and right hilar mass/adenopathy. Other findings as detailed above. Electronically Signed: Moises Jennings MD at 17:20 EDT , Service support , - Pulmonary Medicine Operations: None Procedures: None Summary of Care Provided: The patient is a 67 year old F admitted 03/19/2018 due to right upper back pain and shortness of breath. She has a past medical history of CAD status post stents, hypertension, COPD, depression, tobacco dependence. Patient reports a 17 pound weight loss over the past 1-2 months. Patient was referred by primary care physician for chest x-ray which was abnormal and reported to show [address] of the chest shows multiple right lung masses. Patient reports she has been short of breath for months. Noted to have acute hypoxic respiratory insufficiency. Patient will require supplemental oxygen at discharge. She is ambulatory in the home. Continue supplement oxygen to maintain O2 at or above 90%. Patient's oxygen 84% on room air with ambulation. Pulmonary consulted. Patient currently follows with Dr. Willis, [facility] pulmonary medicine for COPD. Patient will follow-up with primary high school combination teacher within 2 weeks of discharge for further evaluation regarding lung masses including potential bronchoscopy/lung biopsy. Strongly recommended patient quit smoking. Patient complains of chronic back pain and requesting narcotic medication at discharge. She is on muscle relaxer, meloxicam, as needed prednisone, gabapentin at home for chronic back pain. Encourage patient to discuss this further with primary care physician. Recommend follow-up with primary care physician in 1 week. General: Alert, Cooperative, No apparent distress HEENT: Atraumatic, PERRLA, Normocephalic Oral: No Gingival or Mucosal Lesions/ Ulcerations Neck: Supple, No Nodes, Trachea Midline Lungs: No rhonchi, No wheeze, Diminished, Rales Cardiovascular: Regular rate, Regular Rhythm, Normal S1, Normal S2, No murmurs Abdomen: Bowel Sounds Present, Soft, Non Tender, Obese Extremities: No clubbing, No cyanosis, No edema Skin: No breakdown Musculoskeletal: No Tenderness to Palpation of Joints or Extremities, No Muscle Wasting Lymphatic: No Cervical, Supraclavicular, or Inguinal Adenopathy Neurological: Cranial nerves II-XII grossly intact, Neuro grossly intact Psych/Mental Status: Normal Affect, Appropriate Patient seen exam prior to discharge. Physical assessment as noted above. Patient stable for discharge home with the follow-up her conditions as noted above. This patient was seen by EL Lunsford under the supervision of Dr. Matamoros. - Physical Exam Vital Signs Temp Pulse Resp BP Pulse Ox 98.4 F 89 18 121/60 H 93 03/20/18 09:10 03/20/18 09:10 03/20/18 09:10 03/20/18 09:10 03/20/18 09:30 Oxygen Flow Rate (L/min) [ 0 AMBULATING on Room Air] Oxygen Flow Rate (L/min) [At 0 REST on Room Air] Oxygen Flow Rate (L/min) 2 Oxygen Delivery Method Nasal Cannula Weight: 171 lb 15.369 oz Body Mass Index (BMI) 27.7 Intake and Output for Last 24 Hours 03/18/18 03/19/18 03/20/18 23:59 23:59 23:59 Intake Total 442 / 442 1306 / 1306 Balance 442 / 442 1306 / 1306 Laboratory Tests Past 24 Hrs 03/19/18 03/19/18 03/20/18 15:31 15:31 05:39 WBC 8.9 RBC 4.26 Hgb 12.6 Hct 38.0 MCV 89.2 MCH 29.6 MCHC 33.2 RDW 13.6 RDW Differential 43.8 Plt Count 181 MPV 9.6 Immature Gran % (Auto) 0.200 Neut % (Auto) 85.6 H Lymph % (Auto) 12.1 L [place] % (Auto) 1.2 Eos % (Auto) 0.8 Baso % (Auto) 0.1 Absolute Neuts (auto) 7.6 Absolute Lymphs (auto) 1.08 Total Counted Not Reportable Sodium 140 144 Potassium 4.5 3.8 Chloride 106 111 H Carbon Dioxide 27.0 27.0 Anion Gap 7 6 BUN 14 14 Creatinine 0.82 0.58 Estim Creat Clear Calc 63.18 51.81 Est GFR (MDRD) Af Amer 90 133 Est GFR (MDRD) Non-Af 74 110 BUN/Creatinine Ratio 17.1 24.1 H Glucose 143 H 78 Calcium 8.6 8.1 L Troponin I < 0.015 03/20/18 05:39 WBC 8.6 RBC 3.65 L Hgb 10.7 L Hct 33.6 L MCV 92.1 MCH 29.3 MCHC 31.8 L RDW 13.9 RDW Differential 45.3 H Plt Count 140 L MPV 9.6 Immature Gran % (Auto) 0.100 Neut % (Auto) 64.6 Lymph % (Auto) 26.5 [place] % (Auto) 6.3 Eos % (Auto) 2.4 Baso % (Auto) 0.1 Absolute Neuts (auto) 5.6 Absolute Lymphs (auto) 2.28 Total Counted Not Reportable Sodium Potassium Chloride Carbon Dioxide Anion Gap BUN Creatinine Estim Creat Clear Calc Est GFR (MDRD) Af Amer Est GFR (MDRD) Non-Af BUN/Creatinine Ratio Glucose Calcium Troponin I Discharge Diet: Low fat/ Low Cholesterol Discharge Activity: Return to Normal Activity Call your doctor if you observe: Shortness of breath, Dizziness, Fainting spells, Chest pain Home Medications: Medications to take at Discharge Aspirin [Aspirin, Baby] 81 mg PO DAILY@0800 03/19/18 Ergocalciferol [Vitamin D] 50,000 units PO FR 03/19/18 Gabapentin [Neurontin] 600 mg PO TID 03/19/18 Lisinopril [Zestril] 5 mg PO DAILY 03/19/18 Meloxicam 15 mg PO DAILY 03/19/18 Pantoprazole Sodium 40 mg PO DAILY 03/19/18 Prednisone 40 mg PO DAILY PRN PRN 03/19/18 Rosuvastatin Calcium 40 mg PO DAILY 03/19/18 Sertraline HCl [Zoloft] 150 mg PO DAILY 03/19/18 Tizanidine HCl 4 mg PO Q8H PRN PRN 03/19/18 Albuterol Inhaler [Ventolin Hfa] 1 - 2 puff INHALATION Q4H PRN PRN #1 inhaler 03/20/18 Prednisone 40 mg PO DAILY #10 tablet 03/20/18 Following Prescrptions Were Given to Patient: Albuterol Inhaler [Ventolin Hfa] 1 - 2 puff INHALATION Q4H PRN PRN #1 inhaler PRN Reason: Shortness Of Breath Prednisone 40 mg PO DAILY #10 tablet Primary Care Physician: Sher Palacio MD [Primary Care Provider] - Please follow up with your Primary Care Physician in: 1 Week Please Follow Up With: Jose Willis MD When: Within 1 Week Disposition: Home Minutes spent on discharge:: 35 Patient Condition:: Stable Medical Necessity - Tobacco Use Smoking Status: Current every day smoker Tobacco Use: Cigarettes Meaningful Use Info Meaningful Use Diagnoses (Choose all that apply): None applicable <Miky Matamoros F - Last Filed: 03/20/18 11:08> Hospital Course and Treatment Summary of Care Provided: The patient is a 67 year old F [] - Physical Exam Vital Signs Temp Pulse Resp BP Pulse Ox 98.4 F 89 18 121/60 H 93 03/20/18 09:10 03/20/18 09:10 03/20/18 09:10 03/20/18 09:10 03/20/18 09:30 Oxygen Flow Rate (L/min) [ 0 AMBULATING on Room Air] Oxygen Flow Rate (L/min) [At 0 REST on Room Air] Oxygen Flow Rate (L/min) 2 Oxygen Delivery Method Nasal Cannula Weight: 171 lb 15.369 oz Body Mass Index (BMI) 27.7 Intake and Output for Last 24 Hours 03/18/18 03/19/18 03/20/18 23:59 23:59 23:59 Intake Total 442 / 442 1306 / 1306 Balance 442 / 442 1306 / 1306 Laboratory Tests Past 24 Hrs 03/19/18 03/19/18 03/20/18 15:31 15:31 05:39 WBC 8.9 RBC 4.26 Hgb 12.6 Hct 38.0 MCV 89.2 MCH 29.6 MCHC 33.2 RDW 13.6 RDW Differential 43.8 Plt Count 181 MPV 9.6 Immature Gran % (Auto) 0.200 Neut % (Auto) 85.6 H Lymph % (Auto) 12.1 L [place] % (Auto) 1.2 Eos % (Auto) 0.8 Baso % (Auto) 0.1 Absolute Neuts (auto) 7.6 Absolute Lymphs (auto) 1.08 Total Counted Not Reportable Sodium 140 144 Potassium 4.5 3.8 Chloride 106 111 H Carbon Dioxide 27.0 27.0 Anion Gap 7 6 BUN 14 14 Creatinine 0.82 0.58 Estim Creat Clear Calc 63.18 51.81 Est GFR (MDRD) Af Amer 90 133 Est GFR (MDRD) Non-Af 74 110 BUN/Creatinine Ratio 17.1 24.1 H Glucose 143 H 78 Calcium 8.6 8.1 L Troponin I < 0.015 03/20/18 05:39 WBC 8.6 RBC 3.65 L Hgb 10.7 L Hct 33.6 L MCV 92.1 MCH 29.3 MCHC 31.8 L RDW 13.9 RDW Differential 45.3 H Plt Count 140 L MPV 9.6 Immature Gran % (Auto) 0.100 Neut % (Auto) 64.6 Lymph % (Auto) 26.5 [place] % (Auto) 6.3 Eos % (Auto) 2.4 Baso % (Auto) 0.1 Absolute Neuts (auto) 5.6 Absolute Lymphs (auto) 2.28 Total Counted Not Reportable Sodium Potassium Chloride Carbon Dioxide Anion Gap BUN Creatinine Estim Creat Clear Calc Est GFR (MDRD) Af Amer Est GFR (MDRD) Non-Af BUN/Creatinine Ratio Glucose Calcium Troponin I Code Visit Addendum: Dr. Matamoros I personally examined the patient and reviewed the chart. I agree with the above. 67-year-old female with past medical history of CAD status post stents, hypertension, and COPD presented to her PCP with back pain where a d-dimer was performed and was elevated and the next chest x-ray was obtained which showed nodules in her right lung. Her PCP sent her to the ER for further evaluation and she was found to be hypoxic on room air to 86%. She had a CT scan of her chest in the ER which demonstrated multiple right pulmonary lesions. She had an ambulatory pulse ox on the day of discharge demonstrating her necessity for home O2. She was seen by our in-house high school combination teacher who is more than happy to see her as an outpatient however he recommended that since she has a [employer] high school combination teacher that she follow-up with him if possible otherwise he can see her as an outpatient and perform the JULISA and lung biopsy she would need to determine what the diagnosis is. She is not currently on anything for her COPD, and she was heard to have some wheezing today so she was discharged on steroids to help both with her respiratory status as well as her back pain and she was provided with an albuterol inhaler to use as needed. OBSV E&M: [id number] Observation care discharge
--- NOTE | 2018-03-20 11:55 | CASEMGMT ---
KIRA FERNANDO Note: Home oxygen order and supporting documents faxed to [facility]. Call to [facility] to notifu of fax. Callie MALONE CM
--- NOTE | 2018-03-20 12:10 | NURSING ---
This RN spoke with family upon pt request about discharge and oxygen requirement.
--- NOTE | 2018-03-20 12:13 | CASEMGMT ---
RN KASSIE Note. Clinical information and oxygen script faxed to [facility]. Call to Meka @ [facility] to notify. KIRA FERNANDO also spoke with [facility] national dedicated truck driver. Home address given to pt. Coal Trimmer states he is out of area and it will be a few hours before he is back in [place]. Nurse mishel. Callie ELMORE RN ACM
[2018-03-20] MEDS: Acetaminophen 325 MG Tablet 650 MG PO (13:30)
== END 2018-03-20 14:26 | disposition home or self-care (01) ==
LOC: ED 15:53 → MS3 18:45
PROVIDERS: Admitting Provider Student in an Organized Health Care Education/Training Program; Emergency Provider Emergency Medicine; Family Provider Family Medicine; PCP Family Medicine; Visit Provider Family Medicine
DX: J44.1 Chronic obstructive pulmonary disease with (acute) exacerbation (principal); R22.2 Localized swelling, mass and lump, trunk; E78.00 Pure hypercholesterolemia, unspecified; I25.10 Atherosclerotic heart disease of native coronary artery without angina pectoris; Z95.5 Presence of coronary angioplasty implant and graft; I10 Essential (primary) hypertension; Z79.899 Other long term (current) drug therapy; Z79.82 Long term (current) use of aspirin; F32.9 Major depressive disorder, single episode, unspecified; Z79.52 Long term (current) use of systemic steroids; G89.29 Other chronic pain; M54.9 Dorsalgia, unspecified; F17.210 Nicotine dependence, cigarettes, uncomplicated; R06.89 Other abnormalities of breathing; R09.02 Hypoxemia
CPT/HCPCS: 36415; 71275; 80048; 84484; 85025; 93005; 94640; 96361; 96372; 96374; 96375; 96376; 97802; 99218; 99282; J7030; Q9967; A4216; G0378; J2405

== ENCOUNTER 2018-03-29 10:16 | Observation (INO) | payer MEDICARE, MEDICAID, SELFPAY ==
[2018-03-29] VITALS (16 sets, daily range): BP systolic 81–148; BP diastolic 46–74; PULSE 81–142; RESP 14–22; TEMP 36.7–37.5; O2SAT 94–98; BMI 26.6; BMI 28.6; BMI 28.7
--- NOTE | 2018-03-29 10:43 | EKG12_ITS ---
Test Reason : CP Blood Pressure : / mmHG Vent. Rate : 146 BPM Atrial Rate : 144 BPM P-R Int : 000 ms QRS Dur : 124 ms QT Int : 280 ms P-R-T Axes : 000 -54 103 degrees QTc Int : 436 ms Atrial fibrillation with rapid ventricular response with premature ventricular or aberrantly conducte d complexes Left axis deviation Left bundle branch block Abnormal ECG Confirmed by MARTHA CHANEY, KATHRYN ([id number]), primer expeditor and drier JORDAN BRICE ([id number]) on 04/01/2018 3:35:51 PM Referred By: MELANIE Confirmed By:KATHRYN THOMAS MD
--- NOTE | 2018-03-29 10:45 | CT_ITS ---
STUDY: CTA OF THE ENTIRE AORTA REASON FOR EXAM: Female, 67 years old. Evaluate for dissection. Right-sided chest pain and shortness of breath RADIATION DOSAGE (If Supplied By Facility): CTDIvol = ( 14.3 ) mGy, DLP = ( 788.87 ) mGycm TECHNIQUE: Axial CT angiography multi-detector data acquisition was obtained from the aortic arch to the aortic bifurcation following intravenous administration of 100 ml of Isovue 370 contrast. Axial images and MIP images were reconstructed from the axial data set. Post-processing of the angiographic images was performed, with multiplanar reformation and 3D reconstruction. Individualized dose optimization techniques were used for this CT. TECHNICAL QUALITY: Good COMPARISON: CT chest dated 03/19/2018 Descriptors of Narrowing: None (0%) Mild (< 50%) Moderate (50-70%) Severe (70-90%) Subtotal/Total Occlusion (90-100%) Non-Evaluable (technically non-diagnostic FINDINGS: Thoracic aorta:There is mild diffuse narrowing. Abdominal aorta: There is mild diffuse narrowing. Celiac and superior mesenteric arteries: There is mild diffuse narrowing. Inferior mesenteric artery: There is mild diffuse narrowing. Right renal artery(arteries): There is mild diffuse narrowing. Left renal artery(arteries): There is mild diffuse narrowing. Right common iliac artery: There is mild diffuse narrowing. Right external iliac artery: On the last image of this study, there is a questionable intraluminal septation seen in the right external iliac artery. This is best seen on image 199 Right internal iliac artery: There is mild diffuse narrowing. Left common iliac artery: There is mild diffuse narrowing. Left external iliac artery: There is mild diffuse narrowing. Left internal iliac artery: There is mild diffuse narrowing. Please note for vessel takeoff from the aortic arch. Grossly unremarkable thyroid. Extensive right hilar lymphadenopathy with large subcarinal lymph node. No evidence of a large pulmonary embolism. No endobronchial or endotracheal mass. Again noted are multiple large heterogeneously enhancing spiculated masses in the right lung compatible with malignancy. No evidence of acute airspace disease. These masses appear unchanged. Numerous hypodense cysts within the liver. Grossly unremarkable spleen, pancreas, adrenal glands and kidneys. Visualized stomach, small and large bowel are within normal limits. No retroperitoneal lymphadenopathy. Osseous degenerative changes CT/CTA Abdomen W/WO Contrast IMPRESSION: 1. No evidence of thoracic or abdominal aortic aneurysm or dissection. Scattered mild atherosclerotic disease 2. On the last image of this exam, there is a questionable septation flap within the right external iliac artery. Unsure if this represents a dissection flap. 3. No evidence of a large pulmonary embolism 4. Grossly unchanged numerous right-sided pulmonary masses with enlarged right hilar lymphadenopathy and mediastinal lymphadenopathy 5. No acute airspace disease. Electronically Signed: Rad Mckenzie DO at 12:32 EST Tel , Service support ,
--- NOTE | 2018-03-29 10:45 | EKG12_ITS ---
Test Reason : REPEAT Blood Pressure : / mmHG Vent. Rate : 110 BPM Atrial Rate : 110 BPM P-R Int : 136 ms QRS Dur : 078 ms QT Int : 330 ms P-R-T Axes : 056 -37 094 degrees QTc Int : 446 ms Sinus tachycardia Left axis deviation Nonspecific ST and T wave abnormality Abnormal ECG Confirmed by MARTHA CHANEY, KATHRYN ([id number]), editor in chief JORDAN BRICE ([id number]) on 04/01/2018 3:36:09 PM Referred By: MELANIE Confirmed By:KATHRYN THOMAS MD
[2018-03-29 11:16] LABS: Absolute Lymphocyte Count 1.72 X10^3/ul (0.83-4.51); Absolute Neutrophil Count 9.4 X10^3/uL (2.0-7.7); Basophil# 0.02 X10^3/uL; Basophil% 0.2 % (0-1); Eosinophil# 0.49 X10^3/uL; Eosinophils% 3.9 % (0-5); Hematocrit 40.5 % (37-47); Lymphocyte # 1.72 X10^3/ul (4.0); Lymphocyte % 13.7 % (19-41); Mean Corp Hgb Conc 32.1 g/gl (32-36); Mean Corpuscular Hgb 29.3 pg (27.0-32.0); Mean Corpuscular Volume 91.4 fL (81-99); Mean Platelet Vol. 9.3 fl (6.2-12.0); Monocyte# 0.94 X10^3/uL; Monocyte% 7.5 % (0-10); Neutrophil # 9.35 X10^3/uL (2.7-7.7); Neutrophil % 74.5 % (47-70); Platelet Count 154 K/mm3 (150-450); RBC Distribution Width CV 13.8 % (11.6-14.6); RBC Distribution Width SD 46.1 fl (35.1-43.9); Red Blood Count 4.43 M/mm3 (4.2-5.4); White Blood Count 12.5 K/mm3 (4.4-11.0)
[2018-03-29 11:21] LABS: Prothrombin Time (Protime)PT. 13.6 SECONDS (11.7-14.9)
[2018-03-29 11:22] LABS: POSITIVE COUNT NO; POSITIVE DIFFERENTIAL NO; POSITIVE MORPHOLOGY NO; Partial Thromboplast Time 26.8 Seconds (24.1-36.2)
[2018-03-29] MEDS: Morphine 4 MG/ML Syringe IV (11:22)
[2018-03-29] MEDS: 0.9% Normal Saline 1,000 ML 1000 ML IV (11:22)
[2018-03-29] MEDS: Aspirin 81 MG TAB.CHEW 324 MG PO (11:22)
[2018-03-29] MEDS: Ondansetron 4 MG/2 ML Vial IV (11:22)
[2018-03-29 11:39] LABS: AST(SGOT) 15 U/L (15-37); Alanine Aminotransfer ALT/SGPT 33 U/L (13-56); Alkaline Phosphatase 96 U/L (45-117); Anion Gap 6 (5-15); BUN 16 mg/dL (7-18); BUN/Creat Ratio 21.4 RATIO (10-20); Bilirubin, Direct 0.16 mg/dL (0.00-0.30); Calcium,Total 8.6 mg/dL (8.5-10.1); Chloride 105 mmol/L (98-107); Creatinine, Serum 0.75 mg/dL (0.55-1.02); EST Glomerular Filtration Rate 82 mL/min (>60); Est Glom Filt Rate - Afr Amer 100 mL/min (>60); Estimated Creatinine Clearance 51.81 ml/min; Globulin 3.7 g/dL (2.2-4.2); Glucose 117 mg/dL (74-106); Lipase 305 U/L (73-393); Potassium 4.5 mmol/L (3.5-5.1); Protein, Total 6.7 g/dL (6.4-8.2); Sodium Level 138 mmol/L (136-145); Thyroid Stim Hormone (TSH) 1.78 uIU/mL (0.358-3.74)
--- NOTE | 2018-03-29 14:11 | HP.PCM_ITS ---
Problem List (1) Atrial fibrillation with RVR Status: Acute (2) Chest pain Status: Acute Qualifiers: Chest pain type: unspecified Qualified Code(s): R07.9 - Chest pain, unspecified (3) Lung mass Status: Acute (4) CAD (coronary artery disease) Status: Chronic Qualifiers: Coronary Disease-Associated Artery/Lesion type: unspecified vessel or lesion type [place] vs. transplanted heart: unspecified whether [place] or transplanted heart Associated angina: angina presence unspecified Qualified Code(s): I25.10 - Atherosclerotic heart disease of [place] coronary artery without angina pectoris (5) HTN (hypertension) Status: Chronic Qualifiers: Hypertension type: essential hypertension Qualified Code(s): I10 - Essential (primary) hypertension (6) HLD (hyperlipidemia) Status: Chronic Qualifiers: Hyperlipidemia type: unspecified Qualified Code(s): E78.5 - Hyperlipidemia, unspecified (7) Tobacco use Status: Chronic (8) COPD (chronic obstructive pulmonary disease) Status: Chronic Qualifiers: COPD type: unspecified COPD Qualified Code(s): J44.9 - Chronic obstructive pulmonary disease, unspecified History of Present Illness Date of Admission: 03/29/18 Chief Complaint: Chest pain The patient is a 67 y/o F w/ PMHx: Chronic COPD, Tobacco use, Depression and Anxiety, CAD s/p PCI x 5 (last 2003), HTN, HLD, recent admission 03/19/18 for chest pain w/ radiation to her back w/ concurrent dyspnea diagnosed w/ acute on chronic COPD exacerbation w/ acute hypoxic respiratory failure noted to have completed her steroid regimen w/ also concurrent right lung masses suspicious for malignancy w/ planned radiology directed bx this upcoming Thursday who now re-presents with similar presentation w/ midsternal sharp and heavy chest pain, pressure-like in sensation also w/ radiation across the chest to BL shoulders and into her back, rated 10/10 initially, currently improved to 2/10 following return to sinus rhythm. Work-up in the ED included T 98.1, heart rate initially 142--> 99, BP 90/68, respiratory rate 16, 96% on 2 L nasal cannula, CBC with WC 12.5, hemoglobin 13, platelet 154 with left shift, unremarkable coags, CMP with glucose 117, troponin <0.015, lipase 305, TSH 1.78, CTA chest with no evidence of thoracic or abdominal aortic aneurysm or dissection with scattered mild atherosclerotic disease, questionable septation flap within the right external iliac artery, no evidence of pulmonary embolism, grossly unchanged numerous right-sided pulmonary masses with enlarged right hilar lymphadenopathy and mediastinal lymphadenopathy with no acute airspace disease, CTA abdomen with no evidence of thoracic or abdominal aortic aneurysm or dissection with scattered mild atherosclerotic disease, questionable septation flap within the right external iliac artery unsure if representing a dissection flap with no acute ev idence of large pulmonary embolism and grossly unchanged numerous right-sided pulmonary masses with enlarged right hilar lymphadenopathy and mediastinal lymphadenopathy, EKG w/ atrial fibrillation w/ RVR upon initial presentation. Converted in the ED to SR but remained hypotensive. Of note EKG did have rate dependent left bundle branch block which appeared to resolve with improved rate repeat EKG. in the ED patient administered normal saline, Zofran, morphine, Dilaudid, aspirin. Discussed patient presentation with cardiology, Dr. Tubbs given history and recommendation for continued planned outpatient biopsy if cardiac enzyme trending unremarkable, repeat EKG in AM unremarkable cardiology and no recurrent episodes atrial fibrillation w/ RVR with noted CHADs score 2 w/ need for anticoagulation following biopsy completion with follow-up with him in the office. Past Medical History Past Medical History (Chronic Problems): Chronic Problems CAD (coronary artery disease) (Chronic) HTN (hypertension) (Chronic) HLD (hyperlipidemia) (Chronic) Tobacco use (Chronic) COPD (chronic obstructive pulmonary disease) (Chronic) Allergies ibuprofen Allergy (Verified 03/19/18 14:12) Hives orange Allergy (Verified 03/19/18 14:12) Hives Home Medications: Ambulatory Orders Medication Instructions Recorded Ergocalciferol [Vitamin D] 50,000 units PO FR 03/19/18 Gabapentin [Neurontin] 600 mg PO TID 03/19/18 Lisinopril [Zestril] 5 mg PO DAILY 03/19/18 Meloxicam 15 mg PO DAILY 03/19/18 Pantoprazole Sodium 40 mg PO DAILY 03/19/18 Rosuvastatin Calcium 40 mg PO DAILY 03/19/18 Sertraline HCl [Zoloft] 150 mg PO DAILY 03/19/18 Tizanidine HCl 4 mg PO Q8H PRN PRN 03/19/18 Albuterol Inhaler [Ventolin Hfa] 1 - 2 puff INHALATION Q4H PRN PRN 03/20/18 #1 inhaler Beclomethasone Diprop Inhaler 1 puff INHALATION BID 03/29/18 [Qvar 80 Mcg Inhaler] Fluticasone 110 Mcg [Flovent (SP)] 1 puff INHALATION BID 03/29/18 Hydroxyzine HCl 10 mg PO Q8H PRN PRN 03/29/18 Ipratropium/Albuterol Sulfate 3 ml INHALATION Q6H.RT PRN 03/29/18 [Duoneb] Nitroglycerin [Nitrostat] 0.4 mg SUBLINGUAL Q5M PRN 03/29/18 Ropinirole HCl [Requip] 0.25 mg PO TID 03/29/18 Surgical History: - - appendectomy, cholecystectomy Psychiatric History: No pertinent psych hx [employer]ESS [employer]ER History: No pertinent [employer] T[employer]ER history Lives: Spouse/ Significant Other, With Family Smoking Status: Light Smoker (<10/day) - 1 pack q 3 days. Tobacco Use: Cigarettes Alcohol: None Drugs: None - *Family History Sibling History Items: Cancer - lung cancer in 2 of her sisters from smoking; brain cancer in brother, COPD Maternal History Items: Hypertension Paternal History Items: Hypertension Review of Systems Constitutional: Reports: Malaise, Weakness, Fatigue. Denies: Chills, Fever, Weight Change HEENT: Denies: Head Aches, Sinus Congestion, Sinus Drainage Cardiovascular: Reports: Chest Pain, Chest Pressure, Chest Tightness, Heaviness. Denies: Light Headedness, Orthopnea, Palpitations, Syncope Respiratory: Reports: Cough, Shortness of Breath, Shortness of breath at rest, Shortness of breath upon exertion, Wheezing. Denies: Sputum production Gastrointestinal: Denies: Abdominal Pain, Nausea, Vomiting Genitourinary: Denies: Dysuria Musculoskeletal: Reports: Back Pain, Joint Pain, Neck Pain, Shoulder Pain. Denies: Joint Tenderness Skin: Denies: Rash, Wounds Neurological: Denies: Numbness, Tingling, Focal weakness Psychiatric: Reports: Anxiety, Depression. Denies: Homicidal Ideations, Suicidal Ideations Hematologic/ Lymphatic: Denies: Easy Bruising, Easy Bleeding VTE Information - Inpt Only VTE Present on Admission: No VTE Mechan Device Prophylaxis: SCD's VTE Pharm Prophylaxis ordered?: No Reason prophylaxis not ordered:: Medical Contraindication - Defer for planned lung bx. Patient Problems: Active and Suspected Problems Atrial fibrillation with RVR (Acute) Chest pain (Acute) Lung mass (Acute) Subjective: Seated upright in the ED bed, uncomfortable appearing with any movement, notes she has had ongoing worsened discomfort to the chest as well as back, more to recent admission. Objective: Physical Examination: General: awake, alert, oriented x 3 and cooperative, seated upright in the ED bed, fatigued and uncomfortable appearing. Skin: normal color, turgor, no icterus, cyanosis. HEENT: AT/NC, EOMI, PERRLA, moderately dry MM, no carotid bruits or JVD noted. Lungs: Diminished breath sounds throughout, greater bilateral bases, moderate effort, currently no rales, ronchi or wheezing. Heart: Regular rate and rhythm; no gallop, rub audible, reproducible discomfort with palpation of the chest. Abdomen: soft, overweight, NTTP, ND, normal BS, no HSM. Extremities: no cyanosis, clubbing, or edema. Neurological: patient awake, alert, oriented x 3; cognitive function intact; pupils equally reactive to light and accomodation; cranial nerves II-XII grossly normal, moving all 4 extremities, no focal deficits, strength severely globally decreased secondary to acute presentation. Psychiatric: affect appears fatigued, no acute evidence of depressive or anxiety feelings. - Physical Exam Vital Signs Temp Pulse Resp BP Pulse Ox 98.1 F 81 17 101/64 94 03/29/18 10:18 03/29/18 13:03 03/29/18 13:03 03/29/18 13:03 03/29/18 13:03 Oxygen Flow Rate (L/min) 2 Oxygen Delivery Method Nasal Cannula Weight: 165 lb 2.02 oz Body Mass Index (BMI) 26.6 Laboratory Tests Past 24 Hrs 03/29/18 03/29/18 03/29/18 11:05 11:05 11:05 WBC 12.5 H RBC 4.43 Hgb 13.0 Hct 40.5 MCV 91.4 MCH 29.3 MCHC 32.1 RDW 13.8 RDW Differential 46.1 H Plt Count 154 MPV 9.3 Immature Gran % (Auto) 0.200 Neut % (Auto) 74.5 H Lymph % (Auto) 13.7 L [place] % (Auto) 7.5 Eos % (Auto) 3.9 Baso % (Auto) 0.2 Absolute Neuts (auto) 9.4 H Absolute Lymphs (auto) 1.72 Total Counted Not Reportable PT 13.6 INR 1.0 APTT 26.8 Sodium 138 Potassium 4.5 Chloride 105 Carbon Dioxide 27.0 Anion Gap 6 BUN 16 Creatinine 0.75 Estim Creat Clear Calc 51.81 Est GFR (MDRD) Af Amer 100 Est GFR (MDRD) Non-Af 82 BUN/Creatinine Ratio 21.4 H Glucose 117 H Calcium 8.6 Total Bilirubin 0.50 Direct Bilirubin 0.16 AST 15 ALT 33 Alkaline Phosphatase 96 Troponin I < 0.015 Total Protein 6.7 Albumin 3.0 L Globulin 3.7 Lipase 305 TSH 1.78 Assessment/Plan All Active Problems Atrial fibrillation with RVR (Acute) Chest pain (Acute) Lung mass (Acute) Upper back pain on right side (Acute) Shortness of breath (Acute) The patient is a 67 y/o F w/ PMHx: Chronic COPD, Tobacco use, Depression and Anxiety, CAD s/p PCI x 5 (last 2003), HTN, HLD, recent admission 03/19/18 for c hest pain w/ radiation to her back w/ concurrent dyspnea diagnosed w/ acute on chronic COPD exacerbation w/ acute hypoxic respiratory failure noted to have completed her steroid regimen w/ also concurrent right lung masses suspicious for malignancy w/ planned radiology directed bx this upcoming Thursday who now re-presents with similar presentation w/ midsternal sharp and heavy chest pain, pressure-like in sensation also w/ radiation across the chest to BL shoulders and into her back, rated 10/10 initially, currently improved to 2/10 following return to sinus rhythm. (1) New onset, Paroxsymal atrial fibrillation w/ concurrent Chest Pain: ED included T 98.1, heart rate initially 142--> 99, BP 90/68, respiratory rate 16, 96% on 2 L nasal cannula, CBC with WC 12.5, hemoglobin 13, platelet 154 with left shift, unremarkable coags, CMP with glucose 117, troponin <0.015, lipase 305, TSH 1.78, CTA chest with no evidence of thoracic or abdominal aortic aneurysm or dissection with scattered mild atherosclerotic disease, questionable septation flap within the right external iliac artery, no evidence of pulmonary embolism, grossly unchanged numerous right-sided pulmonary masses with enlarged right hilar lymphadenopathy and mediastinal lymphadenopathy with no acute airspace disease, CTA abdomen with no evidence of thoracic or abdominal aortic aneurysm or dissection with scattered mild atherosclerotic disease, questionable septation flap within the right external iliac artery unsure if representing a dissection flap with no acute evidence of large pulmonary embolism and grossly unchanged numerous right-sided pulmonary masses with enlarged right hilar lymphadenopathy and mediastinal lymphadenopathy, EKG w/ atrial fibrillation w/ RVR upon initial presentation. Converted in the ED to SR but remained hypotensive. Of note EKG did have rate dependent left bundle branch block which appeared to resolve with improved rate repeat EKG. in the ED patient administered normal saline, Zofran, morphine, Dilaudid, aspirin. Discussed patient presentation with cardiology, Dr. Tubbs given history and recommendation for continued planned outpatient biopsy if cardiac enzyme trending unremarka ble, repeat EKG in AM unremarkable cardiology and no recurrent episodes atrial fibrillation w/ RVR with noted CHADs score 2 w/ need for anticoagulation following biopsy completion with follow-up with him in the office. Will admit to PCU, maintain on telemetry, obtain cardiac enzyme serial set, obtain magnesium level, obtain ECHO. If necessary may consult Cardiology; however, would plan to evaluate in office otherwise. Defer regimen addition given low BP in ED per discussion w/ ED and underlying pulmonary disease unless necessitated. Holding ASA also for bx. (2) Recently diagnosed right lung masses: Per discussion with cardiology no indication to move out biopsy, plan continued outpatient biopsy on Thursday with anticoagulation initiation following once cleared per radiology status post biopsy. Patient will follow with pulmonary medicine at [facility]. (3) Chronic COPD: Will maintain on oxygen with wean as tolerated to home oxygen supplementation, continue ATC duonebs, PRN albuterol, HOB, IS parameters. (4) Tobacco Abuse: Encouraged cessation, inpatient consultation per RT, NR if desired. (5) Hypertension: Given low BP in the ED will hold home lisinopril, continue IVFs, add back once appropriate. (6) Hyperlipidemia: Continue home statin regimen. AM FLP. (7) GERD: Continue home PPI. (8) Anxiety and Depression: Continue home sertraline regimen. (9) RLS: Continue home Requip regimen. (10) DVT Prophylaxis: SCDs, defer chemoprophylaxis for upcoming biopsy unless enzymes increase. (11) CODE status: Discussed CODE status at length including difference between FULL code, DNR-CCA and DNR-CC status. Following discussions about the differences in these status, requested Full Code status. Patient notes having living will and HCPOA. Advanced Care Planning Face to Face Time: 16 minutes. Code Visit OBSV E&M: 33143 Initial observation care L3 Procedures: 03097 Advncd Care Plan 30 Min
[2018-03-29] MEDS: 0.9% Normal Saline 1,000 ML 999 ML IV (14:24)
[2018-03-29] MEDS: HYDROmorphone 1 MG/ML Syringe IV (14:24)
[2018-03-29 14:49] LABS: Lactic Acid 1.2 mmol/L (0.4-2.0)
--- NOTE | 2018-03-29 16:17 | ECHOD_ITS ---
Reason For Study: ARRHYTHMIA Procedure This was a 2D Doppler, Color Flow transthoracic echocardiogram. Exam performed portable in patient room. Left Ventricle Normal LV size. The estimated ejection fraction is 53 %. Stage 1 diastolic dysfunction. No regional wall motion abnormalities noted. Right Ventricle Normal RV size. Normal systolic function. Atria Normal left atrium. Normal right atrium. Mitral Valve Normal mitral valve. Mild (1+) eccentric mitral valve insufficiency. Tricuspid Valve Normal tricuspid valve. Mild (1+) tricuspid valve insufficiency. Pulmonary artery systolic pressure is 36 mmHg. Aortic Valve Normal aortic valve. Trisinus/trileaflet aortic valve. Pulmonic Valve Normal pulmonic valve. Great Vessels Normal aortic root. The pulmonary artery is normal size. Normal inferior vena cava. Pericardium/Pleural No pericardial effusion. MMode/2D Measurements & Calculations LVIDd: 5.1 cm IVSd: 0.81 cm Ao root diam: 2.9 cm LVIDs: 3.9 cm LVPWd: 0.96 cm RVDd: 3.2 cm FS: 24.8 % LAV(MOD-bp): 47.6 ml LA A4 area: 19.2 cm2 LA dimension(2D): 3.7 cm LAV(MOD-bp) Indexed: 25.8 ml/m2 LAV(MOD-sp2): 35.1 ml LAV(MOD-sp4): 51.8 ml RA A4 area: 13.7 cm2 Time Measurements MV dec time: 0.25 sec Doppler Measurements & Calculations MV E max monico: 91.1 cm/sec Lat Peak E' Monico: 10.3 cm/sec Med Peak E' Monico: 5.1 cm/sec MV A max monico: 106.6 cm/sec E/E' lat: 8.9 E/E' med: 17.9 MV E/A: 0.85 Ao V2 max: 179.6 cm/sec LV V1 max: 111.9 cm/sec PA V2 max: 103.8 cm/sec Ao max P.9 mmHg LV V1 max P.0 mmHg TR max monico: 284.6 cm/sec TR max P.5 mmHg Interpretation Summary Normal LV size. The estimated ejection fraction is 53 %. Stage 1 diastolic dysfunction. Mild (1+) eccentric mitral valve insufficiency. Mild (1+) tricuspid valve insufficiency. Pulmonary artery systolic pressure is 36 mmHg. Ordering Physician: Linda Redd Referring Physician: VAMSI PIMENTEL Performed By: Berenice Leyva, CAMMIE, RVT
--- NOTE | 2018-03-29 16:57 | ED.VISSUMM ---
- ER Visit Summary Date of Service: 03/29/18 Chief Complaint: Chest pain History of Present Illness: The patient is a [address] Vogel, Dr. Bneton, and Dr. Willis. She reports that she has chest pain that began at 830 this morning while she was at rest. It is continuous pressure. Senna 10 hours and 7-10 currently. Is worsened by exertion. Is relieved by nothing. She reports made her nauseated, diaphoretic, and short of breath. Patient reports that the same time she had the onset of diffuse abdominal pain. She describes a sharp pains for 10 severity. She is able to report she had one episode of diarrhea today. No blood in her stools or black tarry stools. She reports she has a little cough. She is a headache that stated 10 severity. She has a history of similar headaches. She complains of paresthesias in her left arm and her lips. Physical Examination: Vitals: 98.1, 98/68, 142, 16, 96% on 2 L nasal cannula. General: Well-nourished and well-developed. Ill appearing. She is diaphoretic. Head: Normocephalic atraumatic. Neck: Supple, no lymphadenopathy. No JVD. Nontender. Cardiovascular: Tachycardic irregular rhythm. No murmurs. Respiratory: No respiratory distress. Clear to auscultation bilaterally. Abdominal: Soft, mild diffuse tenderness to palpation, nondistended, normal bowel sounds. No guarding, rebound, or peritoneal signs. Back: Nontender. Extremities: Nontender, no edema. Skin: Normal color, no rash. Neurologic: Alert and oriented ?3. Cranial nerves II through XII are intact. Normal strength and sensation. Psych: Normal affect. Test Results: EKG is A. fib at 146 with left bundle branch block. Patient converted without any medications given. Repeat EKG is sinus tach at 110 with left axis deviation. There is ST depression in leads V5 V6, 1. She has a T wave inversion in lead aVL. Her left bundle branch block has resolved. Her troponin is negative. LFTs marked for an albumin 3.0. Lipase is normal. Coags are normal. Chem-7 is more for glucose 117. CBC is more for white count of 12.5 with 75 segmented neutrophils and 14 lymphocytes. TSH is normal. Lactic acid is 1.2. Clinical Impression(s) from Imaging Studies Chest CTA 03/29/18 10:42 IMPRESSION: 1. No evidence of thoracic or abdominal aortic aneurysm or dissection. Scattered mild atherosclerotic disease 2. On the last image of this exam, there is a questionable septation flap within the right external iliac artery. Unsure if this represents a dissection flap. 3. No evidence of a large pulmonary embolism 4. Grossly unchanged numerous right-sided pulmonary masses with enlarged right hilar lymphadenopathy and mediastinal lymphadenopathy 5. No acute airspace disease. Electronically Signed: Rad Mckenzie DO at 12:32 EST Tel , Service support , Abdomen CTA 03/29/18 10:45 IMPRESSION: 1. No evidence of thoracic or abdominal aortic aneurysm or dissection. Scattered mild atherosclerotic disease 2. On the last image of this exam, there is a questionable septation flap within the right external iliac artery. Unsure if this represents a dissection flap. 3. No evidence of a large pulmonary embolism 4. Grossly unchanged numerous right-sided pulmonary masses with enlarged right hilar lymphadenopathy and mediastinal lymphadenopathy 5. No acute airspace disease. Electronically Signed: Rad Mckenzie DO at 12:32 EST Tel , Service support , Emergency Department Course and Treatment: Patient's A. fib RVR converted without any pharmacologic therapy. She was treated with morphine and Zofran IV for her pain. She is resting more comfortably. However, she remains hypotensive. She was given a liter of normal saline. Treatment Plan: Patient was discussed with Dr. Redd. She will be admitted to the hospital for further evaluation and treatment. Disposition: Admitted in improved condition Impression: 1. Atrial fibrillation with RVR. 2. Chest pain. 3. Abdominal pain, uncertain cause. 4. Lung masses. 5. Rate dependent left bundle branch block. This note was generated with [employer] software. It may contain incorrect words, spelling, and punctuation that were not noted in review of the chart prior to signing ED Disposition - Plan for ED Patient: Disposition: Acute Care Hospital [facility] Chief Complaint: Chest Pain
--- NOTE | 2018-03-29 17:01 | ED.DCSUM_ITS ---
- ER Visit Summary Date of Service: 03/29/18 Chief Complaint: Chest pain History of Present Illness: The patient is a [address] Vogel, Dr. Benton, and Dr. Willis. She reports that she has chest pain that began at 830 this morning while she was at rest. It is continuous pressure. Senna 10 hours and 7-10 currently. Is worsened by exertion. Is relieved by nothing. She reports made her nauseated, diaphoretic, and short of breath. Patient reports that the same time she had the onset of diffuse abdominal pain. She describes a sharp pains for 10 severity. She is able to report she had one episode of diarrhea today. No blood in her stools or black tarry stools. She reports she has a little cough. She is a headache that stated 10 severity. She has a history of similar headaches. She complains of paresthesias in her left arm and her lips. Physical Examination: Vitals: 98.1, 98/68, 142, 16, 96% on 2 L nasal cannula. General: Well-nourished and well-developed. Ill appearing. She is diaphoretic. Head: Normocephalic atraumatic. Neck: Supple, no lymphadenopathy. No JVD. Nontender. Cardiovascular: Tachycardic irregular rhythm. No murmurs. Respiratory: No respiratory distress. Clear to auscultation bilaterally. Abdominal: Soft, mild diffuse tenderness to palpation, nondistended, normal bowel sounds. No guarding, rebound, or peritoneal signs. Back: Nontender. Extremities: Nontender, no edema. Skin: Normal color, no rash. Neurologic: Alert and oriented ?3. Cranial nerves II through XII are intact. Normal strength and sensation. Psych: Normal affect. Test Results: EKG is A. fib at 146 with left bundle branch block. Patient converted without any medications given. Repeat EKG is sinus tach at 110 with left axis deviation. There is ST depression in leads V5 V6, 1. She has a T wave inversion in lead aVL. Her left bundle branch block has resolved. Her troponin is negative. LFTs marked for an albumin 3.0. Lipase is normal. Coags are normal. Chem-7 is more for glucose 117. CBC is more for white count of 12.5 with 75 segmented neutrophils and 14 lymphocytes. TSH is normal. Lactic acid is 1.2. Clinical Impression(s) from Imaging Studies Chest CTA 03/29/18 10:42 IMPRESSION: 1. No evidence of thoracic or abdominal aortic aneurysm or dissection. Scattered mild atherosclerotic disease 2. On the last image of this exam, there is a questionable septation flap within the right external iliac artery. Unsure if this represents a dissection flap. 3. No evidence of a large pulmonary embolism 4. Grossly unchanged numerous right-sided pulmonary masses with enlarged right hilar lymphadenopathy and mediastinal lymphadenopathy 5. No acute airspace disease. Electronically Signed: Rad Mckenzie DO at 12:32 EST Tel , Service support , Abdomen CTA 03/29/18 10:45 IMPRESSION: 1. No evidence of thoracic or abdominal aortic aneurysm or dissection. Scattered mild atherosclerotic disease 2. On the last image of this exam, there is a questionable septation flap within the right external iliac artery. Unsure if this represents a dissection flap. 3. No evidence of a large pulmonary embolism 4. Grossly unchanged numerous right-sided pulmonary masses with enlarged right hilar lymphadenopathy and mediastinal lymphadenopathy 5. No acute airspace disease. Electronically Signed: Rad Mckenzie DO at 12:32 EST Tel , Service support , Emergency Department Course and Treatment: Patient's A. fib RVR converted without any pharmacologic therapy. She was treated with morphine and Zofran IV for her pain. She is resting more comfortably. However, she remains hypotensive. She was given a liter of normal saline. Treatment Plan: Patient was discussed with Dr. Redd. She will be admitted to the hospital for further evaluation and treatment. Disposition: Admitted in improved condition Impression: 1. Atrial fibrillation with RVR. 2. Chest pain. 3. Abdominal pain, uncertain cause. 4. Lung masses. 5. Rate dependent left bundle branch block. This note was generated with Hal[employer] software. It may contain incorrect words, spelling, and punctuation that were not noted in review of the chart prior to signing ED Disposition - Plan for ED Patient: Disposition: Acute Care Hospital [facility] Chief Complaint: Chest Pain
[2018-03-29] MEDS: 0.9% Normal Saline 1,000 ML 100 ML IV (17:06)
[2018-03-29 18:18] LABS: Magnesium 2.1 mg/dL (1.6-2.6); Phosphorus 3.9 mg/dL (2.5-4.9)
[2018-03-29] MEDS: Morphine 2 MG/ML Syringe IV (18:21)
[2018-03-29] MEDS: Gabapentin 600 MG Tablet PO (18:21)
[2018-03-29 18:44] LABS: Bacteria 0 SEEN /hpf (None Seen); Mucous, Urine 0 SEEN /hpf (<or=2+); Red Blood Cells-Urine 0 SEEN /hpf (0-5); Squamous Epithelial Cells - UA 0 SEEN /hpf (5-10)
[2018-03-29] MEDS: Ipratropium/Albuterol Sulfate 3 ML AMPUL.NEB INHALATION (19:09)
[2018-03-29 19:41] LABS: Color, Urine Yellow (Yellow); Glucose, Dipstick Normal (Normal); Ketone-Dipstick Negative (Negative); Leukocyte Esterase-Dipstick 25 /ul (Negative); Nitrite-Dipstick Negative (Negative); Occult Blood-Urine Negative /ul (Negative); Protein-Dipstick Negative (Negative); Specific Gravity, Urine 1.015 (1.002-1.030); Urine Bilirubin Dipstick Negative (Negative); Urine Clarity Clear (Clear); Urine Urobilinogen Normal (Normal)
[2018-03-29 19:55] LABS: White Blood Cells 0-5 SEEN /hpf (0-5)
[2018-03-29] MEDS: oxyCODONE 5 MG Tablet PO (19:58)
[2018-03-29] MEDS: Atorvastatin Calcium 80 MG Tablet PO (22:13)
[2018-03-29] MEDS: Pramipexole Di-HCl 0.125 MG Tablet PO (22:14)
[2018-03-29] MEDS: MELATONIN 3 MG TABLET PO (22:14)
[2018-03-29] MEDS: Sertraline 50 MG Tablet PO (22:15)
[2018-03-30] VITALS (17 sets, daily range): BP systolic 95–111; BP diastolic 47–59; PULSE 80–103; RESP 18–20; TEMP 36.3–38.4; O2SAT 92–96
[2018-03-30] MEDS: 0.9% Normal Saline 1,000 ML 100 ML IV (02:16)
[2018-03-30] MEDS: Morphine 2 MG/ML Syringe IV (02:16)
[2018-03-30] MEDS: Acetaminophen 325 MG Tablet 650 MG PO ×3 (03:17→16:24)
[2018-03-30] MEDS: oxyCODONE 5 MG Tablet PO ×3 (05:53→16:24)
[2018-03-30] MEDS: Pramipexole Di-HCl 0.125 MG Tablet PO ×2 (05:53→13:00)
--- NOTE | 2018-03-30 05:55 | EKG12_ITS ---
Test Reason : AM Blood Pressure : / mmHG Vent. Rate : 088 BPM Atrial Rate : 088 BPM P-R Int : 146 ms QRS Dur : 076 ms QT Int : 360 ms P-R-T Axes : 062 -02 090 degrees QTc Int : 435 ms Normal sinus rhythm Nonspecific ST and T wave abnormality Abnormal ECG When compared with ECG of 29-MAR-2018 11:04, MANUAL COMPARISON REQUIRED, DATA IS UNCONFIRMED Confirmed by MARTHA CHANEY, KATHRYN ([id number]), visual effects editor JORDAN BRICE ([id number]) on 04/01/2018 4:00:20 PM Referred By: ANIRUDH Confirmed By:KATHRYN THOMAS MD
[2018-03-30 06:23] LABS: Absolute Lymphocyte Count 1.68 X10^3/ul (0.83-4.51); Absolute Neutrophil Count 5.7 X10^3/uL (2.0-7.7); Basophil# 0.01 X10^3/uL; Basophil% 0.1 % (0-1); Eosinophils% 4.8 % (0-5); Hematocrit 32.5 % (37-47); Hemoglobin 10.2 g/dl (12.0-15.0); Lymphocyte # 1.68 X10^3/ul (4.0); Mean Corp Hgb Conc 31.4 g/gl (32-36); Mean Corpuscular Hgb 29.1 pg (27.0-32.0); Mean Corpuscular Volume 92.9 fL (81-99); Mean Platelet Vol. 9.4 fl (6.2-12.0); Monocyte# 0.56 X10^3/uL; Monocyte% 6.7 % (0-10); Neutrophil # 5.71 X10^3/uL (2.7-7.7); Neutrophil % 68.2 % (47-70); Platelet Count 129 K/mm3 (150-450); RBC Distribution Width CV 14.5 % (11.6-14.6); RBC Distribution Width SD 49.2 fl (35.1-43.9); White Blood Count 8.4 K/mm3 (4.4-11.0)
[2018-03-30 06:32] LABS: POSITIVE COUNT NO; POSITIVE DIFFERENTIAL NO; POSITIVE MORPHOLOGY NO
[2018-03-30 06:44] LABS: Anion Gap 8 (5-15); BUN 11 mg/dL (7-18); BUN/Creat Ratio 14.2 RATIO (10-20); Calcium,Total 7.9 mg/dL (8.5-10.1); Chloride 105 mmol/L (98-107); Cholesterol 113 mg/dL (200); Creatinine, Serum 0.78 mg/dL (0.55-1.02); EST Glomerular Filtration Rate 79 mL/min (>60); Est Glom Filt Rate - Afr Amer 96 mL/min (>60); Estimated Creatinine Clearance 51.81 ml/min; Glucose 106 mg/dL (74-106); High Density Lipoprotein 57 mg/dL; Potassium 4.4 mmol/L (3.5-5.1); Sodium Level 139 mmol/L (136-145); Triglycerides 204 mg/dL; Very Low Density Lipoprotein 41 mg/dL (5-40)
[2018-03-30] MEDS: Ipratropium/Albuterol Sulfate 3 ML AMPUL.NEB INHALATION ×2 (07:27→13:25)
[2018-03-30] MEDS: Gabapentin 600 MG Tablet PO ×3 (08:28→16:33)
[2018-03-30] MEDS: Sertraline 100 MG Tablet PO (08:28)
[2018-03-30] MEDS: Meloxicam 15 MG Tablet PO (08:29)
[2018-03-30] MEDS: Pantoprazole Sodium 40 MG Tablet PO (08:29)
[2018-03-30] MEDS: dilTIAZem 30 MG Tablet PO (13:08)
--- NOTE | 2018-03-30 14:37 | PCM.DC ---
- Discharge Diagnoses Current Active Problems: Current Active and Chronic Problems Atrial fibrillation with RVR (Acute) Chest pain (Acute) CAD (coronary artery disease) (Chronic) HTN (hypertension) (Chronic) HLD (hyperlipidemia) (Chronic) Tobacco use (Chronic) COPD (chronic obstructive pulmonary disease) (Chronic) Lung mass (Acute) You will use the following diet at home:: No restrictions Your food should be the consistency of: Regular Your liquids should be the consistency of: Regular/Thin Discharge Activity: Return to Normal Activity Weight Bearing Status: Full weight bearing Allergies/Adverse Reactions: Allergies ibuprofen Allergy (Verified 03/19/18 14:12) Hives orange Allergy (Verified 03/19/18 14:12) Hives Medications to take at Discharge Ergocalciferol [Vitamin D] 50,000 units PO FR 03/19/18 Gabapentin [Neurontin] 600 mg PO TID 03/19/18 Lisinopril [Zestril] 5 mg PO DAILY 03/19/18 Meloxicam 15 mg PO DAILY 03/19/18 Pantoprazole Sodium 40 mg PO DAILY 03/19/18 Rosuvastatin Calcium 40 mg PO DAILY 03/19/18 Sertraline HCl [Zoloft] 150 mg PO DAILY 03/19/18 Tizanidine HCl 4 mg PO Q8H PRN PRN 03/19/18 Albuterol Inhaler [Ventolin Hfa] 1 - 2 puff INHALATION Q4H PRN PRN #1 inhaler 03/20/18 Beclomethasone Diprop Inhaler [Qvar 80 Mcg Inhaler] 1 puff INHALATION BID 03/29/18 Fluticasone 110 Mcg [Flovent 110 Mcg] 1 puff INHALATION BID 03/29/18 Hydroxyzine HCl 10 mg PO Q8H PRN PRN 03/29/18 Ipratropium/Albuterol Sulfate [Duoneb] 3 ml INHALATION Q6H.RT PRN 03/29/18 Nitroglycerin [Nitrostat] 0.4 mg SUBLINGUAL Q5M PRN 03/29/18 Ropinirole HCl [Requip] 0.25 mg PO TID 03/29/18 Acetaminophen [Tylenol Tablet] 650 mg PO Q6H PRN PRN tablet 03/30/18 Hydrocodone/Acetaminophen [[place] 5-325 Tablet] 1 each PO Q4H PRN PRN 7 Days #30 tablet 03/30/18 The following prescriptions were given: Hydrocodone/Acetaminophen [[place] 5-325 Tablet] 1 each PO Q4H PRN PRN 7 Days #30 tablet PRN Reason: Pain Primary Care Physician: Torito Benton MD [Primary Care Provider] - Please follow up with your Primary Care Physician in: as scheduled Test Results: Test results from this visit will be discussed in further detail at your follow-up appointment, if applicable. Please Follow Up With: Magdy Nicolas MD When: within a week-call for appointment
--- NOTE | 2018-03-31 10:38 | PCM.DC.SUM ---
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-nonsignificant #5 chronic obstructive pulmonary disease #6 hypertension #7 hyperlipidemia #8 coronary artery disease by history - Secondary Discharge Diagnosis Chronic Problems CAD (coronary artery disease) (Chronic) HTN (hypertension) (Chronic) HLD (hyperlipidemia) (Chronic) Tobacco use (Chronic) COPD (chronic obstructive pulmonary disease) (Chronic) Hospital Course and Treatment Operations: None Procedures: 2-D Echocardiogram Summary of Care Provided: The patient is a 67 year old F who was seen in the emergency room at [facility] with complaints of precordial chest pain and nonspecific diffuse abdominal pain, she complained her chest pain was worsened by exertion. Workup in the emergency room included an EKG which showed atrial fibrillation with a rate of 146 with a left bundle branch block, EKG was repeated after the patient converted without any medication and it revealed a sinus tachycardia at 110 with left axis deviation. There were ST changes in V5, V6, and 1, she had T wave inversions in lead aVL. Troponin was obtained and was unremarkable, CTA of the chest was performed which showed evidence of neoplastic process in the right lung, right hilum, and mediastinum. CTA of the abdomen was obtained due to complaints of abdominal pain and showed evidence of a flap in the right external iliac artery. This finding was not felt to be significant as the patient had no complaints related to stenosis of the right external iliac artery. Patient was placed into observation on PCU, she remained in normal sinus rhythm, troponins were cycled and all were negative. Patient had an echocardiogram which showed preserved ejection fraction. I contacted her oxygen equipment technician-Dr. Nicolas-he recommended trying the patient on oral Cardizem, patient was given a dose of 30 mg of oral Cardizem immediate release, unfortunately, patient's systolic blood pressure declined and it was was felt that the patient would not tolerate Cardizem as an outpatient and so this medication was not continued when she was discharged. This examiner felt that her chest pain was indicative of her pulmonary neoplasm-she was due to get a biopsy of the lung performed on 03/31/18, patient was given pain medication and a prescription for [place] to use as an outpatient for chest pain. On 03/30/18, patient was seen and examined: On examination she appeared in good health and spirits. Vital signs as documented. Skin warm and dry and without overt rashes. Neck without JVD. Lungs clear. Heart exam notable for regular rhythm, normal sounds and absence of murmurs, rubs or gallops. Abdomen unremarkable and without evidence of organomegaly, masses, or abdominal aortic enlargement. Extremities nonedematous. Neuro: Cranial nerves II through XII are grossly intact, no focal motor deficits were noted, sensation to light touch and pinprick was intact. Psych: Patient was alert and oriented x3, she did not appear to be anxious or depressed. On 03/30/18, patient was seen and examined and discharged home in stable condition - Physical Exam Vital Signs Temp Pulse Resp BP Pulse Ox 98.6 F 90 18 99/55 L 96 03/30/18 16:26 03/30/18 16:26 03/30/18 16:26 03/30/18 16:26 03/30/18 16:26 Oxygen Flow Rate (L/min) 2 Oxygen Delivery Method Nasal Cannula Weight: 80.6 kg Body Mass Index (BMI) 28.6 Intake and Output for Last 24 Hours 03/29/18 03/30/18 03/31/18 23:59 23:59 23:59 Intake Total 1179 / 1179 1177 / 1177 Balance 1179 / 1179 1177 / 1177 Microbiology Past 72 Hours 03/29/18 18:35 Urine Culture - Final Urine, Clean Catch Presumptive E. coli Discharge Activity: Return to Normal Activity Weight Bearing Status: Full weight bearing Home Medications: Medications to take at Discharge Ergocalciferol [Vitamin D] 50,000 units PO FR 03/19/18 Gabapentin [Neurontin] 600 mg PO TID 03/19/18 Lisinopril [Zestril] 5 mg PO DAILY 03/19/18 Meloxicam 15 mg PO DAILY 03/19/18 Pantoprazole Sodium 40 mg PO DAILY 03/19/18 Rosuvastatin Calcium 40 mg PO DAILY 03/19/18 Sertraline HCl [Zoloft] 150 mg PO DAILY 03/19/18 Tizanidine HCl 4 mg PO Q8H PRN PRN 03/19/18 Albuterol Inhaler [Ventolin Hfa] 1 - 2 puff INHALATION Q4H PRN PRN #1 inhaler 03/20/18 Beclomethasone Diprop Inhaler [Qvar 80 Mcg Inhaler] 1 puff INHALATION BID 03/29/18 Fluticasone 110 Mcg [Flovent 110 Mcg] 1 puff INHALATION BID 03/29/18 Hydroxyzine HCl 10 mg PO Q8H PRN PRN 03/29/18 Ipratropium/Albuterol Sulfate [Duoneb] 3 ml INHALATION Q6H.RT PRN 03/29/18 Nitroglycerin [Nitrostat] 0.4 mg SUBLINGUAL Q5M PRN 03/29/18 Ropinirole HCl [Requip] 0.25 mg PO TID 03/29/18 Acetaminophen [Tylenol Tablet] 650 mg PO Q6H PRN PRN tablet 03/30/18 Hydrocodone/Acetaminophen [[place] 5-325 Tablet] 1 each PO Q4H PRN PRN 7 Days #30 tablet 03/30/18 Following Prescrptions Were Given to Patient: Hydrocodone/Acetaminophen [[place] 5-325 Tablet] 1 each PO Q4H PRN PRN 7 Days #30 tablet PRN Reason: Pain Primary Care Physician: Torito Benton MD [Primary Care Provider] - Please follow up with your Primary Care Physician in: as scheduled Please Follow Up With: Magdy Nicolas MD When: within a week-call for appointment Disposition: Home Minutes spent on discharge:: 28 Patient Condition:: Stable Medical Necessity - Tobacco Use Smoking Status: Current every day smoker Tobacco Use: Cigarettes Meaningful Use Info Meaningful Use Diagnoses (Choose all that apply): None applicable Code Visit OBSV E&M: 37948 Observation care discharge
--- NOTE | 2018-03-31 10:42 | DS.PCM_ITS ---
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-nonsignificant #5 chronic obstructive pulmonary disease #6 hypertension #7 hyperlipidemia #8 coronary artery disease by history - Secondary Discharge Diagnosis Chronic Problems CAD (coronary artery disease) (Chronic) HTN (hypertension) (Chronic) HLD (hyperlipidemia) (Chronic) Tobacco use (Chronic) COPD (chronic obstructive pulmonary disease) (Chronic) Hospital Course and Treatment Operations: None Procedures: 2-D Echocardiogram Summary of Care Provided: The patient is a 67 year old F who was seen in the emergency room at [facility] with complaints of precordial chest pain and nonspecific diffuse abdominal pain, she complained her chest pain was worsened by exertion. Workup in the emergency room included an EKG which showed atrial fibrillation with a rate of 146 with a left bundle branch block, EKG was repeated after the patient converted without any medication and it revealed a sinus tachycardia at 110 with left axis deviation. There were ST changes in V5, V6, and 1, she had T wave inversions in lead aVL. Troponin was obtained and was unremarkable, CTA of the chest was performed which showed evidence of neoplastic process in the right lung, right hilum, and mediastinum. CTA of the abdomen was obtained due to complaints of abdominal pain and showed evidence of a flap in the right external iliac artery. This finding was not felt to be significant as the patient had no complaints related to stenosis of the right external iliac artery. Patient was placed into observation on PCU, she remained in normal sinus rhythm, troponins were cycled and all were negative. Patient had an echocardiogram which showed preserved ejection fraction. I contacted her piece work inspector-Dr. Nicolas-he recommended trying the patient on oral Cardizem, patient was given a dose of 30 mg of oral Cardizem immediate release, unfortunately, patient's systolic blood pressure declined and it was was felt that the patient would not tolerate Cardizem as an outpatient and so this medication was not continued when she was discharged. This examiner felt that her chest pain was indicative of her pulmonary neoplasm-she was due to get a biopsy of the lung performed on 03/31/18, patient was given pain medication and a prescription for [place] to use as an outpatient for chest pain. On 03/30/18, patient was seen and examined: On examination she appeared in good health and spirits. Vital signs as documented. Skin warm and dry and without overt rashes. Neck without JVD. Lungs clear. Heart exam notable for regular rhythm, normal sounds and absence of murmurs, rubs or gallops. Abdomen unre markable and without evidence of organomegaly, masses, or abdominal aortic enlargement. Extremities nonedematous. Neuro: Cranial nerves II through XII are grossly intact, no focal motor deficits were noted, sensation to light touch and pinprick was intact. Psych: Patient was alert and oriented x3, she did not appear to be anxious or depressed. On 03/30/18, patient was seen and examined and discharged home in stable condition - Physical Exam Vital Signs Temp Pulse Resp BP Pulse Ox 98.6 F 90 18 99/55 L 96 03/30/18 16:26 03/30/18 16:26 03/30/18 16:26 03/30/18 16:26 03/30/18 16:26 Oxygen Flow Rate (L/min) 2 Oxygen Delivery Method Nasal Cannula Weight: 80.6 kg Body Mass Index (BMI) 28.6 Intake and Output for Last 24 Hours 03/29/18 03/30/18 03/31/18 23:59 23:59 23:59 Intake Total 1179 / 1179 1177 / 1177 Balance 1179 / 1179 1177 / 1177 Microbiology Past 72 Hours 03/29/18 18:35 Urine Culture - Final Urine, Clean Catch Presumptive E. coli Discharge Activity: Return to Normal Activity Weight Bearing Status: Full weight bearing Home Medications: Medications to take at Discharge Ergocalciferol [Vitamin D] 50,000 units PO FR 03/19/18 Gabapentin [Neurontin] 600 mg PO TID 03/19/18 Lisinopril [Zestril] 5 mg PO DAILY 03/19/18 Meloxicam 15 mg PO DAILY 03/19/18 Pantoprazole Sodium 40 mg PO DAILY 03/19/18 Rosuvastatin Calcium 40 mg PO DAILY 03/19/18 Sertraline HCl [Zoloft] 150 mg PO DAILY 03/19/18 Tizanidine HCl 4 mg PO Q8H PRN PRN 03/19/18 Albuterol Inhaler [Ventolin Hfa] 1 - 2 puff INHALATION Q4H PRN PRN #1 inhaler 03/20/18 Beclomethasone Diprop Inhaler [Qvar 80 Mcg Inhaler] 1 puff INHALATION BID 03/29/18 Fluticasone 110 Mcg [Flovent 110 Mcg] 1 puff INHALATION BID 03/29/18 Hydroxyzine HCl 10 mg PO Q8H PRN PRN 03/29/18 Ipratropium/Albuterol Sulfate [Duoneb] 3 ml INHALATION Q6H.RT PRN 03/29/18 Nitroglycerin [Nitrostat] 0.4 mg SUBLINGUAL Q5M PRN 03/29/18 Ropinirole HCl [Requip] 0.25 mg PO TID 03/29/18 Acetaminophen [Tylenol Tablet] 650 mg PO Q6H PRN PRN tablet 03/30/18 Hydrocodone/Acetaminophen [[place] 5-325 Tablet] 1 each PO Q4H PRN PRN 7 Days #30 tablet 03/30/18 Following Prescrptions Were Given to Patient: Hydrocodone/Acetaminophen [[place] 5-325 Tablet] 1 each PO Q4H PRN PRN 7 Days #30 tablet PRN Reason: Pain Primary Care Physician: Torito Benton MD [Primary Care Provider] - Please follow up with your Primary Care Physician in: as scheduled Please Follow Up With: Magdy Nicolas MD When: within a week-call for appointment Disposition: Home Minutes spent on discharge:: 28 Patient Condition:: Stable Medical Necessity - Tobacco Use Smoking Status: Current every day smoker Tobacco Use: Cigarettes Meaningful Use Info Meaningful Use Diagnoses (Choose all that apply): None applicable Code Visit OBSV E&M: 36764 Observation care discharge
== END 2018-03-30 14:38 | disposition home or self-care (01) ==
LOC: ED 10:56 → PCU 15:06
PROVIDERS: Admitting Provider Family Medicine; Emergency Provider Emergency Medicine; Family Provider Family Medicine; PCP Family Medicine; Visit Provider Internal Medicine
DX: I48.0 Paroxysmal atrial fibrillation (principal); J44.9 Chronic obstructive pulmonary disease, unspecified; E78.5 Hyperlipidemia, unspecified; I25.10 Atherosclerotic heart disease of native coronary artery without angina pectoris; I10 Essential (primary) hypertension; Z79.899 Other long term (current) drug therapy; I44.7 Left bundle-branch block, unspecified; F17.210 Nicotine dependence, cigarettes, uncomplicated; F41.9 Anxiety disorder, unspecified; K21.9 Gastro-esophageal reflux disease without esophagitis; F32.9 Major depressive disorder, single episode, unspecified; G25.81 Restless legs syndrome; R91.8 Other nonspecific abnormal finding of lung field
CPT/HCPCS: 36415; 71275; 74175; 80048; 80061; 80076; 81001; 83605; 83690; 83735; 84100; 84443; 84484; 85025; 85610; 85730; 87086; 87088; 87186; 93005; 93306; 94640; 96361; 96374; 96375; 96376; 97162; 97165; 97802; 99218; 99285; 99406; J7030; Q9967; A4216; G0378; J2405

== ENCOUNTER → 2018-03-31 09:16 | Outpatient (CLI) | payer MEDICARE, MEDICAID, SELFPAY ==
[2018-03-31] VITALS (10 sets, daily range): BP systolic 91–129; BP diastolic 42–80; PULSE 87–95; RESP 12–18; TEMP 37.1; O2SAT 95–99; BMI 267.6
--- NOTE | 2018-03-31 | ASPIGT_PTH ---
PATIENT: KUSUM LOUIS LOC: [place] U#:[id number] AGE/SX: 74/F ROOM: RE03/31/[address]: Dr. Jose Willis MD : 1950 BED: DIS: SPEC #: [id number] RECD: 03/31/18 12:11 STATUS: MICHELLE JEF #: [id number] [place]: 03/31/18 00:[address]: Jose Willis DEPT: SURGICAL PATHOLOGY RECD BY: Tari Martinez ENTERED: 03/31/18 12:12 SP TYPE: ASP RAD OTHR DR: Dr. Torito Benton MD Tissues: Right middle lobe of lung, NOS Procedures: FNA Specimen Adequacy Special Stain Group II Surgery Specimen Level IV Diff Quik Stain (control) Imprint (control) HEADER OPERATION: CT-guided right lung biopsy PRE-OP DIAGNOSIS: Right lung mass TISSUE SUBMITTED: Right middle lobe lung 20 gauge core x3 MICROSCOPIC DIAGNOSIS Right middle lobe lung, CT-guided core biopsy: Non-small cell carcinoma, favor adenocarcinoma, consistent with lung primary. SUZIE:anastasia 04/01/18 COMMENT The specimen is evaluated at the time of CT-guided lung biopsy by Dr. Mendoza. Immediate Evaluation = Malignant cells present derived from non-small cell carcinoma. Immunohistochemistry ([id number]) supports the above diagnosis. Molecular studies on the tumor will be performed and results will be reported later as an addendum. Case has been reviewed in consultation with Dr. Pal who concurs with the above diagnosis. IDC:AM MICROSCOPIC DESCRIPTION Slides are reviewed. GROSS DESCRIPTION Received in fixative is one container labeled with the patient's name and designated right lung. The specimen consists of multiple elongated pieces of diaz soft tissue measuring 0.5 x 0.1 x 0.1 cm. Two touch imprints are prepared at the time of core biopsy. The specimen is totally submitted in one cassette. / SUZIE:anastasia 03/31/18 TC:0 [facility]: [id number], [id number] ADDENDUM ADDENDUM ADDENDUM ADDENDUM ADDENDUM ADDENDUM ADDENDUM ADDENDUM ADDENDUM ADDENDUM ADDENDUM 04/09/2018 11:55 ADDENDUM 04/09/2018 11:55 ADDENDUM 04/09/2018 11:55 ADDENDUM 04/09/2018 11:55 ADDENDUM 04/09/2018 11:55 ALK FISH, Lung, Non-Small Cell (NSCLS) From [facility] FISH RESULT: Negative: No ALK gene rearrangement observed INTERPRETATION: Nuclei with extra intact ALK signals observed Please see complete report in e-chart or EMR
--- NOTE | 2018-03-31 | IMM_PTH ---
PATIENT: KUSUM LOUIS LOC: CT U#:[id number] AGE/SX: 74/F ROOM: RE03/31/[address]: Dr. Jose Willis MD : 1950 BED: DIS: SPEC #: [id number] RECD: 04/01/18 12:39 STATUS: MICHELLE REQ #: [id number] [place]: 03/31/18 00:[address]: Jose Willis DEPT: IMMUNOHISTOCHEMISTRY RECD BY: Opal Murray ENTERED: 04/01/18 12:42 SP TYPE: IMMUNO OTHR DR: Dr. Torito Benton MD Tissues: Lung, NOS Procedures: NAPSIN A (add) CK20 (add) CK5-6 (add) CK7 (add) CK8 (add) TX (add) TTF1 (add) P40 (add) ER (initial) PHYSICIAN & INSTITUTION [place] [id number] SPECIMEN INFORMATION: Tissue Source: Right middle lobe lung, CT-guided biopsy Clinical Info: Right lung mass Specimen Number: [id number] CPT code: 06477, 45867 x8 METHODOLOGY: Deparaffinized sections of prefer/formalin-fixed tissue or PAP/DQ stained slides are incubated with monoclonal/polyclonal antibodies/oligonucleotide probes. Localization is made via biotin free immunoperoxidase method. Appropriate controls are performed and reacted as expected. Results on target cell population are indicated in the following table: RESULTS: ANTIBODY / CLONE RESULT ER (6F11) negative TX (1E2) negative CK7 (OV-TL12/30) positive CK8 (19vdrgH47) positive CK20 (KS20.8) negative TTF-1 (8G7G3/1) positive Napsin A (Rabbit Polyclonal) positive CK5-6 (D5 & 1684) negative P40 (BC28) negative These tests were developed and their performance characteristics determined by [facility]. They may not have been cleared or approved by the U.S. Food and Drug Administration. The FDA has determined that such clearance or approval is not necessary. INTERPRETATION: Right middle lobe lung, CT-guided biopsy: Non-small cell carcinoma, favor adenocarcinoma, consistent with lung primary. SJ:anastasia 04/02/18 Case has been reviewed in consultation with Dr. Pal who concurs with the above diagnosis. IDC:AM
--- NOTE | 2018-03-31 09:21 | CT_ITS ---
PROCEDURE: CT GUIDED CORE NEEDLE BIOPSY OF A right middle lobe LUNG LESION INDICATION: Female, 67 years old. Multiple nodules in the right hemithorax. PHYSICIAN: Dr. Debbie CHANEY CONSENT: Written informed consent was obtained having explained the risks, benefits and alternatives in detail with the patient who accepted the risks and agreed to proceed. Laboratory review and clinical assessment was performed. CONSCIOUS SEDATION PROTOCOL: The Drugs used were: 2 mg Versed, IV., and 50 mcg Fentanyl, IV. The sedation time was: 15 minutes. Conscious sedation was started at 10:36 AM and terminated at 10:51 AM. The conscious sedation protocol was independently monitored. RADIATION DOSAGE (If Supplied By Facility): CTDIvol = ( 18 ) mGy, DLP = ( 479.95 ) mGycm Individualized dose optimization techniques were used for this CT. TECHNIQUE: The patient was placed in the right side up decubitus position. A noncontrast CT was performed to localize the lesion in the peripheral aspect of the right middle lobe . The skin surface was prepped and draped in a sterile fashion. 1% lidocaine was used for local anesthesia. Using CT guidance, a 20-gauge coaxial biopsy device was advanced to the periphery of the lesion. A total of 3 core specimens were obtained. The specimens were placed in a formalin solution. A post procedure CT demonstrated no adverse sequelae or pneumothorax. The patient tolerated the procedure well without adverse event. A negative biopsy does not exclude malignancy. Further imaging or clinical followup based on patient condition and degree of clinical suspicion for malignancy. Suggest rebiopsy, if biopsy results do not match with clinical scenario. CT/Biopsy/Inj or Needle Placement IMPRESSION: 1. CT directed core needle biopsy of the right middle lobe nodule using CT image guidance with image documentation as described. Pathology results are pending. 2. Conscious Sedation protocol utilized with independent monitoring. Electronically Signed: Deepak Lewis MD at 12:48 EST Tel [phone], Service support ,
[2018-03-31] MEDS: Midazolam 2 MG/2 ML Syringe IV (10:36)
[2018-03-31] MEDS: fentaNYL 100 MCG/2 ML Ampul IV (10:36)
--- NOTE | 2018-03-31 10:55 | RAD_ITS ---
STUDY: X-RAY CHEST REASON FOR EXAM: Female, 67 years old. Immediate post right lung biopsy radiograph. TECHNIQUE: Inspiration expiration view. COMPARISON: None. FINDINGS: The patient is status post right lung biopsy. There is no evidence of pneumothorax on the immediate postright lung biopsy radiographs. RAD/Chest Insp/Exp 2 View IMPRESSION: No evidence of pneumothorax on the immediate postright lung biopsy radiograph. Electronically Signed: Deepak Lewis MD at 11:08 EST Tel [phone], Service support ,
--- NOTE | 2018-03-31 13:01 | RAD_ITS ---
STUDY: X-RAY CHEST REASON FOR EXAM: Female, 67 years old. 2 hour postright lung biopsy radiograph. TECHNIQUE: PA inspiration expiration views. COMPARISON: Comparison is made with prior study done earlier in the day. FINDINGS: The patient is status post right lung biopsy. There is no evidence of pneumothorax. Stable right pulmonary nodules. RAD/Chest Insp/Exp 2 View IMPRESSION: No evidence of pneumothorax on the 2 hour post right lung biopsy radiograph. Stable right pulmonary masses. Electronically Signed: Deepak Lewis MD at 13:41 EST Tel [phone], Service support ,
[2018-04-09 12:46] LABS: Miscellaneous Lab Procedure SEE PATHOLOGY REPORT
== END ==
PROVIDERS: Family Provider Family Medicine; PCP Family Medicine; Referring Provider Internal Medicine Pulmonary Disease; Visit Provider Internal Medicine Pulmonary Disease
DX: C34.2 Malignant neoplasm of middle lobe, bronchus or lung (principal); J43.2 Centrilobular emphysema; M19.90 Unspecified osteoarthritis, unspecified site; J45.909 Unspecified asthma, uncomplicated; K57.30 Diverticulosis of large intestine without perforation or abscess without bleeding; M85.80 Other specified disorders of bone density and structure, unspecified site; Z95.5 Presence of coronary angioplasty implant and graft; Z90.49 Acquired absence of other specified parts of digestive tract; Z96.21 Cochlear implant status; F17.210 Nicotine dependence, cigarettes, uncomplicated
CPT/HCPCS: 32405; 71046; 77012; 88172; 88305; 88313; 88341; 88342; 99156; J7040; A4216

== ENCOUNTER 2018-06-17 15:59 | Emergency (ER) | payer MEDICARE, MEDICAID, SELFPAY ==
[2018-06-17 16:00] VITALS: PULSE 114; RESP 16; TEMP 36.8; O2SAT 96; BMI 27.1
--- NOTE | 2018-06-17 16:14 | EKG12_ITS ---
Test Reason : CP Blood Pressure : / mmHG Vent. Rate : 107 BPM Atrial Rate : 107 BPM P-R Int : 134 ms QRS Dur : 086 ms QT Int : 336 ms P-R-T Axes : 044 -12 083 degrees QTc Int : 448 ms Sinus tachycardia Inferior infarct , age undetermined Abnormal ECG Confirmed by JOO CHANEY, SANAM ([id number]), production editor JORDAN BRICE ([id number]) on 06/22/2018 2:59:18 PM Referred By: BAR Confirmed By:SANAM GE MD
--- NOTE | 2018-06-17 16:19 | ED.DCSUM_ITS ---
- ER Visit Summary Date of Service: 06/17/18 Chief Complaint: Chest pain History of Present Illness: The patient is a 67 F who presents with chest pain. Started last night. She describes a heaviness in her chest. It does not localize into one specific area. Nothing makes this better or worse. She does have associated shortness of breath. She also complains of cramping in her legs. Patient currently has stage IV lung cancer and is currently on chemotherapy. Her last chemotherapy treatment was on Thursday. She wears 2 L of home oxygen chronically. She has a history of coronary artery disease with 6 stents previously. Her hematology technologist is Dr. Escobar. Physical Examination: Vital signs reviewed. HEENT exam unremarkable. Heart is tachycardic and regular rhythm without murmurs. Lungs are clear to auscultation. She does have diffuse chest tenderness to palpation. Abdomen is soft and nontender. Extremities reveal no edema. Peripheral pulses are equal. Skin exam normal. Neurologic exam normal. Test Results: EKG is normal sinus rhythm with rate of 107. Nonspecific ST and T wave changes noted. Laboratory studies show white blood cell count of 4.2, sodium 134, glucose 110. Troponin normal. Chest x-ray reveals regression of the masses. This shows a response to the patient's treatment for her lung cancer. Emergency Department Course and Treatment: Patient was given aspirin. Sublingual nitroglycerin was held due to her marginal blood pressure. I did give her fentanyl for her pain. She has had over 12 hours of pain. I do not feel that this is cardiac in nature. Patient was admitted 3 months ago with similar symptoms and was found to be noncardiac at that time as well. I feel that she can be discharged home to follow-up with her PCP. Treatment Plan: [] Disposition: Discharge Impression: Chest pain This note was generated with [employer] dictation software. It may contain incorrect words, spelling, and punctuation that were not noted in review of the chart prior to signing ED Disposition - Plan for ED Patient: Chief Complaint: Chest Pain Referrals: Torito Benton MD [Primary Care Provider] -
--- NOTE | 2018-06-17 16:20 | RAD_ITS ---
STUDY: X-RAY CHEST REASON FOR EXAM: Female, 67 years old. Chest pain, history of lung cancer with chemotherapy TECHNIQUE: Portable upright chest COMPARISON: 03/31/2018 chest x-ray. CT chest 03/29/2018. FINDINGS: Hyperlucency and hyperinflation of the lungs with flattening of the hemidiaphragms and diffuse mild coarsening of interstitium consistent with underlying COPD/emphysema. A right lower lobe lung lateral basilar mass with the previous greatest dimension of 4.4 cm has substantially regressed, now more ill-defined with a greatest dimension of approximately 2.7 cm. Left lung clear. A right infrahilar/retrohilar oval mass has also regressed, previous greatest dimension 4.1 cm, current greatest dimension 3.3 cm. Otherwise normal cardiomediastinal silhouette. There is no significant prominence of the right hilum with apparent substantial regression of previously seen right hilar lymphadenopathy. No acute osseous or upper abdominal process. RAD/Chest 1 View (Portable) IMPRESSION: Regression of right lower lung lateral basilar mass, and right lower lung infrahilar/retrohilar mass. No substantial prominence of the right hilum at this time with apparent regression of the right hilar lymphadenopathy seen on prior imaging. Apparent response to therapy. Electronically Signed: John Mendoza MD at 17:07 EST Tel , Service support ,
[2018-06-17 16:29] LABS: Absolute Lymphocyte Count 1.16 X10^3/ul (0.83-4.51); Absolute Neutrophil Count 2.9 X10^3/uL (2.0-7.7); Basophil# 0.01 X10^3/uL; Basophil% 0.2 % (0-1); Eosinophil# 0.07 X10^3/uL; Eosinophils% 1.7 % (0-5); Hematocrit 35.7 % (37-47); Lymphocyte # 1.16 X10^3/ul (4.0); Lymphocyte % 27.5 % (19-41); Mean Corp Hgb Conc 33.6 g/gl (32-36); Mean Corpuscular Hgb 30.1 pg (27.0-32.0); Mean Corpuscular Volume 89.5 fL (81-99); Mean Platelet Vol. 9.3 fl (6.2-12.0); Monocyte# 0.06 X10^3/uL; Monocyte% 1.4 % (0-10); Neutrophil # 2.91 X10^3/uL (2.7-7.7); POSITIVE COUNT NO; POSITIVE DIFFERENTIAL NO; POSITIVE MORPHOLOGY NO; Platelet Count 161 K/mm3 (150-450); RBC Distribution Width CV 16.6 % (11.6-14.6); RBC Distribution Width SD 53.3 fl (35.1-43.9); Red Blood Count 3.99 M/mm3 (4.2-5.4); White Blood Count 4.2 K/mm3 (4.4-11.0)
[2018-06-17 16:30] VITALS: BP 96/72; PULSE 108; RESP 18; TEMP 36.8; O2SAT 99
[2018-06-17] MEDS: Aspirin 81 MG TAB.CHEW 324 MG PO (16:31)
[2018-06-17 16:47] LABS: Anion Gap 8 (5-15); BUN 18 mg/dL (7-18); BUN/Creat Ratio 21.8 RATIO (10-20); Calcium,Total 8.9 mg/dL (8.5-10.1); Chloride 100 mmol/L (98-107); Creatinine, Serum 0.83 mg/dL (0.55-1.02); EST Glomerular Filtration Rate 73 mL/min (>60); Est Glom Filt Rate - Afr Amer 89 mL/min (>60); Estimated Creatinine Clearance 62.42 ml/min; Glucose 110 mg/dL (74-106); Potassium 4.6 mmol/L (3.5-5.1); Sodium Level 134 mmol/L (136-145)
[2018-06-17 17:25] VITALS: BP 103/66; PULSE 91; RESP 16; TEMP 36.8; O2SAT 98
--- NOTE | 2018-06-17 17:41 | ED.DEP ---
ED Disposition - Plan for ED Patient: Disposition: Home or Assisted Living Chief Complaint: Chest Pain Instructions: ED Chest Pain NonCardiac Referrals: Torito Benton MD [Primary Care Provider] -
[2018-06-17 17:58] VITALS: BP 86/57; PULSE 88; RESP 15; O2SAT 96
[2018-06-17] MEDS: fentaNYL 100 MCG/2 ML Ampul 50 MCG IV (17:59)
== END 2018-06-17 18:20 | disposition home or self-care (01) ==
PROVIDERS: Emergency Provider Emergency Medicine; Family Provider Family Medicine; PCP Family Medicine
DX: R07.89 Other chest pain (principal); R25.2 Cramp and spasm; C34.90 Malignant neoplasm of unspecified part of unspecified bronchus or lung; I25.10 Atherosclerotic heart disease of native coronary artery without angina pectoris; J44.9 Chronic obstructive pulmonary disease, unspecified; Z95.5 Presence of coronary angioplasty implant and graft; Z99.81 Dependence on supplemental oxygen; Z79.899 Other long term (current) drug therapy; Z72.0 Tobacco use
CPT/HCPCS: 71045; 80048; 84484; 85025; 93005; 96374; 99284

== ENCOUNTER 2018-08-10 14:29 | Emergency (ER) | payer MEDICARE, MEDICAID, SELFPAY ==
[2018-08-10 14:35] VITALS: BP 99/62; PULSE 102; RESP 22; TEMP 36.6; O2SAT 99; BMI 26.5
--- NOTE | 2018-08-10 14:58 | ED.RN ---
pt states was off her oxygen for a long time. became sob, nervous because of brother-vomited due to anxiety. states on 02 feels fine
--- NOTE | 2018-08-10 15:12 | RAD_ITS ---
STUDY: X-RAY CHEST REASON FOR EXAM: Female, 67 years old. Cough TECHNIQUE: Single AP portable view of the chest. COMPARISON: None. FINDINGS: The lungs are clear and expanded. There is no demonstrated pleural abnormality. Normal size heart. Normal mediastinum and annette. Normal visualized pulmonary arteries. There is atherosclerotic calcification of the aortic arch with tortuosity. Normal visualized thoracic spine. There is degenerative osteoarthritis of the bilateral shoulders. There is no demonstrated abnormality of the visualized soft tissue structures of the upper abdomen. RAD/Chest 1 View (Portable) IMPRESSION: Degenerative changes, as described above. No demonstrated acute cardiopulmonary process. Electronically Signed: Martinez Hampton, at 16:03 EDT Tel , Service support ,
--- NOTE | 2018-08-10 15:14 | ED.VISSUMM ---
- ER Visit Summary Date of Service: 08/10/18 Chief Complaint: Shortness of breath History of Present Illness: The patient is a 67 F presenting with shortness of breath. Patient states that her brother was being taken by EMS to the emergency department. She decided to drive behind the ambulance. She left the house in a hurry and forgot her oxygen. She normally wears 2 L oxygen all the time even with driving. By the time she arrived to the ED she was anxious and short of breath. She denies chest pain. She has had a mild cough. She complains of nausea. She states she has had decreased appetite. Denies other complaints. Physical Examination: Vitals are stable. Patient is afebrile. Alert no acute distress. HEENT exam is unremarkable. Neck is supple. Lungs are clear and equal bilaterally. Heart is regular and tachycardic Abdomen is soft nontender nondistended. No guarding or rebound Extremities are unremarkable. Skin is warm and dry. No focal neurologic deficit. Remainder of exam is unremarkable. Emergency Department Course and Treatment: Patient was given IV fluids, Zofran. She feels improved on 2 L O2. Chest x-ray shows no acute process. CBC normal except platelet 146. Chemistries unremarkable. Patient is resting comfortably in the ED. She is able to tolerate p.o. in the emergency department. She is advised to follow-up with her primary care physician. Advised return to ED for worsening complaints. She has a ride home and oxygen available en route. Disposition: Discharge home Impression: Dyspnea, history of COPD This note was generated with [employer] dictation software. It may contain incorrect words, spelling, and punctuation that were not noted in review of the chart prior to signing ED Disposition - Plan for ED Patient: Instructions: ED COPD Flare Referrals: Torito Benton MD [Primary Care Provider] -
[2018-08-10 15:38] VITALS: BP 103/66; PULSE 90; RESP 18; TEMP 36.6; O2SAT 96
[2018-08-10 16:38] VITALS: BP 105/65; PULSE 84; RESP 14; TEMP 36.6; O2SAT 96
[2018-08-10] MEDS: Ondansetron ODT 4 MG Tablet PO (17:00)
[2018-08-10 17:08] VITALS: BP 105/65; PULSE 85; RESP 14; O2SAT 95
[2018-08-10 17:08] LABS: Absolute Lymphocyte Count 1.12 X10^3/ul (0.83-4.51); Absolute Neutrophil Count 4.3 X10^3/uL (2.0-7.7); Basophil# 0.01 X10^3/uL; Basophil% 0.2 % (0-1); Eosinophil# 0.33 X10^3/uL; Eosinophils% 5.4 % (0-5); Hematocrit 37.1 % (37-47); Hemoglobin 12.5 g/dl (12.0-15.0); Lymphocyte # 1.12 X10^3/ul (4.0); Lymphocyte % 18.4 % (19-41); Mean Corp Hgb Conc 33.7 g/gl (32-36); Mean Corpuscular Hgb 31.8 pg (27.0-32.0); Mean Corpuscular Volume 94.4 fL (81-99); Mean Platelet Vol. 9.3 fl (6.2-12.0); Monocyte# 0.33 X10^3/uL; Monocyte% 5.4 % (0-10); Neutrophil # 4.29 X10^3/uL (2.7-7.7); Neutrophil % 70.6 % (47-70); Platelet Count 146 K/mm3 (150-450); RBC Distribution Width CV 15.6 % (11.6-14.6); RBC Distribution Width SD 54.3 fl (35.1-43.9); Red Blood Count 3.93 M/mm3 (4.2-5.4); White Blood Count 6.1 K/mm3 (4.4-11.0)
[2018-08-10 17:09] LABS: POSITIVE COUNT NO; POSITIVE DIFFERENTIAL NO; POSITIVE MORPHOLOGY NO
[2018-08-10 17:12] LABS: Anion Gap 3 (5-15); BUN 17 mg/dL (7-18); BUN/Creat Ratio 21.1 RATIO (10-20); Calcium,Total 9.1 mg/dL (8.5-10.1); Chloride 105 mmol/L (98-107); Creatinine, Serum 0.81 mg/dL (0.55-1.02); EST Glomerular Filtration Rate 76 mL/min (>60); Est Glom Filt Rate - Afr Amer 91 mL/min (>60); Estimated Creatinine Clearance 63.96 ml/min; Glucose 98 mg/dL (74-106); Potassium 4.2 mmol/L (3.5-5.1); Sodium Level 136 mmol/L (136-145)
--- NOTE | 2018-08-10 18:05 | ED.DEP ---
ED Disposition - Plan for ED Patient: Instructions: ED COPD Flare Referrals: Torito Benton MD [Primary Care Provider] -
[2018-08-10 18:19] VITALS: BP 106/68; PULSE 88; RESP 20; O2SAT 96
[2018-08-10 19:41] VITALS: BP 104/77; PULSE 74; RESP 19; O2SAT 97
--- NOTE | 2018-08-10 19:42 | ED.RN ---
DISCHARGE INSTRUCTIONS GIVEN TO AND REVIEWED WITH PATIENT, PATIENT DENIES QUESTIONS OR CONCERNS AND VOICES UNDERSTANDING OF DISCHARGE INSTRUCTIONS. PT TO PRIVATE VEHICLE VIA WHEELCHAIR.
== END 2018-08-10 19:43 | disposition home or self-care (01) ==
LOC: ED 15:28
PROVIDERS: Emergency Provider Emergency Medicine; Family Provider Family Medicine; PCP Family Medicine
DX: R06.00 Dyspnea, unspecified (principal); J44.9 Chronic obstructive pulmonary disease, unspecified
CPT/HCPCS: 71045; 80048; 85025; 96374; 99282; J7030; J7040; A4216; J2405

== ENCOUNTER 2018-10-05 00:41 | Emergency (ER) | payer MEDICARE, MEDICAID, SELFPAY ==
[2018-10-05 00:41] VITALS: BP 124/76; PULSE 104; RESP 24; TEMP 36.8; O2SAT 98; BMI 27.3
[2018-10-05 00:49] VITALS: O2SAT 98
[2018-10-05 00:50] VITALS: O2SAT 98
--- NOTE | 2018-10-05 01:10 | ED.DCSUM_ITS ---
History of Present Illness Chief Complaint: Shortness of Breath Informant: Patient, Family Narrative: Patient is end-stage lung cancer no longer receiving treatment. She has been off chemo for the last 2 months. She was on hospice but they state it is not safe for them to come to the house because of a disruptive family member. Tonight she has been feeling more weak than normal. No chest pain. She got up and used her walker to try to go to bed and felt more weak and short of breath. She is on 4 L nasal cannula oxygen. Denies any chest pain or acute short of breath. Currently she states she has a mild headache. She did have a morphine dose approximately a few hours ago for chronic pain. She has lung cancer with mets. No new cough. Denies any other symptoms. - Past Medical History (1) Atrial fibrillation with RVR Status: Acute (2) Chest pain Status: Acute (3) Lung mass Status: Acute (4) Shortness of breath Status: Acute (5) Upper back pain on right side Status: Acute (6) CAD (coronary artery disease) Status: Chronic (7) COPD (chronic obstructive pulmonary disease) Status: Chronic (8) HLD (hyperlipidemia) Status: Chronic (9) HTN (hypertension) Status: Chronic (10) Tobacco use Status: Chronic Past Medical History - Allergies and Home Meds Allergies/Adverse Reactions: Allergies ibuprofen Allergy (Verified 10/05/18 00:45) Hives orange Allergy (Verified 10/05/18 00:45) Hives Primary Care Physician: Torito Benton MD [Primary Care Provider] - Prior records reviewed: Yes Surgical History: - - appendectomy, cholecystectomy Lives: With Family Smoking Status: Current every day smoker Alcohol: None Drugs: None - Family History Sibling Family History: Reports: Cancer - lung cancer in 2 of her sisters from smoking; brain cancer in brother, COPD Maternal Family History: Reports: Hypertension Paternal Family History: Reports: Hypertension Review of Systems General: Denies: Chills, Fever, Sweats Eyes: Denies: Visual changes - bilaterally, Diplopia ENT: Denies: Rhinorrhea, Sore throat Cardiovascular: Denies: Chest pain, Palpitations Respiratory: Reports: Dyspnea on exertion. Denies: Dyspnea, Cough, Sputum, Ort hopnea, Paroxysmal nocturnal dyspnea Gastrointestinal: Denies: Abdominal pain, Nausea, Vomiting, Diarrhea, Melena, Hematochezia Genitourinary: Denies: Dysuria, Hematuria, Frequency Musculoskeletal: Denies: Back pain, Extremity Pain Skin: Denies: Rash, Wounds Neurological: Reports: Headache, Weakness. Denies: Numbness Physical Exam Vital Signs/Narrative: Vital Signs Temp Pulse Resp BP Pulse Ox 10/05/18 00:50 98 10/05/18 00:41 98.3 F 104 H 24 H 124/76 H 98 General: Well nourished, Well developed, No Acute Distress Head: Normocephalic, Atraumatic Eyes: Perrl, EOMI ENT: Moist mucous membranes, No rhinorrhea Neck: Supple, Nontender Cardiovascular: Regular rate, Regular rhythm, No murmurs Respiratory: No distress, CTA bilaterally, Chest nontender Abdomen: Soft, Nontender, Nondistended, Normal bowel sounds Back: Nontender, Normal Inspection Extremities: Nontender, No edema Skin: Normal color, No rash Neurological: Alert, Oriented x3, Cranial nerves II-XII grossly intact, Normal Strength, Normal Sensation Psychological: Normal affect, Normal Mood Diagnostic/Tx/Re-eval - Medical Decision Making Patient appears well. She does not have that much longer to live per family. Basic lab work and chest x-ray obtained. Is normal sinus on the monitor with a rate of 100. Lab work does not show any major acute abnormalities. Mildly low hematocrit but normal hemoglobin. No significant evidence of dehydration. BUN slightly elevated. Chest x-ray shows no new abnormalities. Patient remained stable in the department. Does not appear short of breath. Will run to try to get her a wheelchair for home. She will follow-up as an outpatient. ED Disposition - Plan for ED Patient: Disposition: Group Home Facility Diagnosis: Weakness, Lung cancer Instructions: ED Weakness [facility] Referrals: Torito Benton MD [Primary Care Provider] -
--- NOTE | 2018-10-05 01:15 | RAD_ITS ---
HISTORY: SOB, HX COPD lung cancer status post chemotherapy EXAM:XR Chest 1 View portable COMPARISON: 08/10/2018 and CTA chest 03/19/2018 FINDINGS: EKG leads in place. With comparison to the most recent portable chest exam, no significant change. Normal heart size. No acute infiltrates. Previously seen right lower lobe mass and right lung nodules evident by CT exam are not identified by current portable exam. No vascular congestion or pleural effusion. Atherosclerotic thoracic aorta. No pneumothorax. RAD/Chest 1 View (Portable) IMPRESSION: 1. No pneumonia, CHF, or acute chest disease identified. 2. Known history of lung cancer and previously seen right lung lesions are not evident by portable chest exam. at 0139 Reported and signed by: Juno Rodrigez MD Electronically Signed: Juno Rodrigez, at 1:38 EDT Tel , Service support ,
[2018-10-05] MEDS: Acetaminophen 500 MG Tablet 1000 MG PO (01:21)
[2018-10-05 01:41] VITALS: BP 110/68; PULSE 90; RESP 16; O2SAT 94
[2018-10-05 01:48] LABS: Anion Gap 7 (5-15); BUN 21 mg/dL (7-18); BUN/Creat Ratio 23.4 RATIO (10-20); Calcium,Total 8.6 mg/dL (8.5-10.1); Chloride 106 mmol/L (98-107); EST Glomerular Filtration Rate 67 mL/min (>60); Est Glom Filt Rate - Afr Amer 81 mL/min (>60); Estimated Creatinine Clearance 57.56 ml/min; Glucose 123 mg/dL (74-106); Potassium 3.8 mmol/L (3.5-5.1); Sodium Level 138 mmol/L (136-145)
[2018-10-05 01:50] LABS: Absolute Lymphocyte Count 1.94 X10^3/ul (0.83-4.51); Absolute Neutrophil Count 7.8 X10^3/uL (2.0-7.7); Basophil# 0.02 X10^3/uL; Basophil% 0.2 % (0-1); Eosinophil# 0.22 X10^3/uL; Eosinophils% 2.1 % (0-5); Hematocrit 36.9 % (37-47); Hemoglobin 12.6 g/dl (12.0-15.0); Lymphocyte # 1.94 X10^3/ul (4.0); Lymphocyte % 18.3 % (19-41); Mean Corp Hgb Conc 34.1 g/gl (32-36); Mean Corpuscular Hgb 32.3 pg (27.0-32.0); Mean Corpuscular Volume 94.6 fL (81-99); Mean Platelet Vol. 8.9 fl (6.2-12.0); Monocyte# 0.58 X10^3/uL; Monocyte% 5.5 % (0-10); Neutrophil % 73.6 % (47-70); POSITIVE COUNT NO; POSITIVE DIFFERENTIAL NO; POSITIVE MORPHOLOGY NO; Platelet Count 155 K/mm3 (150-450); RBC Distribution Width CV 12.8 % (11.6-14.6); White Blood Count 10.6 K/mm3 (4.4-11.0)
[2018-10-05 02:04] VITALS: BP 123/84; PULSE 92; RESP 16; O2SAT 94
== END 2018-10-05 02:40 | disposition home or self-care (01) ==
PROVIDERS: Emergency Provider Emergency Medicine; Family Provider Family Medicine; PCP Family Medicine
DX: C34.90 Malignant neoplasm of unspecified part of unspecified bronchus or lung (principal); R53.1 Weakness; C79.9 Secondary malignant neoplasm of unspecified site; R51 Headache; I48.91 Unspecified atrial fibrillation; I25.10 Atherosclerotic heart disease of native coronary artery without angina pectoris; J44.9 Chronic obstructive pulmonary disease, unspecified; I10 Essential (primary) hypertension; E78.5 Hyperlipidemia, unspecified; Z99.81 Dependence on supplemental oxygen; Z79.899 Other long term (current) drug therapy; F17.200 Nicotine dependence, unspecified, uncomplicated
CPT/HCPCS: 36415; 71045; 80048; 85025; 99284